=== PATIENT | female | born 1970 | race Caucasian/White ===

== ENCOUNTER 2017-08-12 00:32 | Emergency (ER) | payer OTHER ==
[2017-08-12] MEDS ORDERED: Acetaminophen 500 MG TAB ONE (02:12)
[2017-08-12 03:17] LABS: ALT (SGPT) Less than 7 U/L (8-55); AST (SGOT) 9 U/L (5-34); Alkaline Phosphatase 85 U/L (40-150); Anion Gap 12 mmol/L (10-20); BUN (Urea Nitrogen) 10 mg/dL (7.0-18.7); Bilirubin, Total 0.5 mg/dL (0.2-1.2); Calc. Creatinine Clearance 0 mL/min (70-130); Calcium 8.9 mg/dL (7.8-10.44); Carbon Dioxide 24 mmol/L (22-29); Chloride 105 mmol/L (98-107); Estimated GFR-MDRD 64; Globulin 3.1 g/dL (2.4-3.5); Lipase 19 U/L (8-78); Protein, Total 6.8 g/dL (6.0-8.3)
[2017-08-12 03:18] LABS: Hematocrit 37.1 % (36.0-47.0); Neutrophil 82 % (42-75); Red Blood Cell (RBC) Count 3.93 mill/uL (4.20-5.40); White Blood Cell (WBC) Count 14.8 thou/uL (4.8-10.8)
[2017-08-12 03:45] LABS: Bilirubin Small (Negative); Blood, Urine Trace (Negative); Glucose, Urine (Dipstick) Negative (Negative); Ketone, Urine Trace mg/dL (Negative); Nitrite Negative (Negative); Protein, Urine (Dipstick) 100 mg/dL (Neg-Trace)
[2017-08-12 03:47] LABS: Bacteria/HPF 1+ HPF (None Seen); RBC/HPF 0-3 HPF (0-3)
[2017-08-12 03:56] LABS: Hyaline Casts/LPF NONE SEEN LPF (0-3 Hyaline)
--- NOTE | 2017-08-12 07:03 | RAD ---
AP VIEW OF CHEST: Date: 08/12/17 INDICATION: Chest pain. Swelling within lymph glands of neck with soreness in the head and fever. IMPRESSION: The examination is not appreciably changed from the comparison dated 01/12/17. There is stable mild cardiomegaly. POS: [facility]
== END 2017-08-12 04:20 | disposition home or self-care (01) ==
LOC: ERS 00:32
DX: R59.0 Localized enlarged lymph nodes (principal); N39.0 Urinary tract infection, site not specified; I25.10 Atherosclerotic heart disease of native coronary artery without angina pectoris; I11.0 Hypertensive heart disease with heart failure; I50.9 Heart failure, unspecified; F31.9 Bipolar disorder, unspecified; F41.9 Anxiety disorder, unspecified; Z79.899 Other long term (current) drug therapy
CPT/HCPCS: 36415; 71010; 80053; 81003; 81015; 82553; 83690; 83880; 84484; 85025; 86308; 93005

== ENCOUNTER 2017-08-25 15:44 | Observation (INO) | payer OTHER ==
[2017-08-25 16:07] LABS: #Eosinphils 0.2 thou/uL (0.0-0.7); #Lymphocytes 1.9 thou/uL (1.20-3.40); #Monocytes 0.5 thou/uL (0.11-0.59); #Neutrophils 7.8 thou/uL (1.40-6.50); %Basophils 0.5 % (0.0-1.0); %Eosinophils 2.2 % (0.0-10.0); %Lymphocytes 18.2 % (21.0-51.0); %Monocytes 4.3 % (0.0-10.0); Hematocrit 39.1 % (36.0-47.0); Mean Platelet Volume 11.8 fL (7.4-10.4); Red Blood Cell (RBC) Count 4.13 mill/uL (4.20-5.40); White Blood Cell (WBC) Count 10.4 thou/uL (4.8-10.8)
[2017-08-25 16:25] LABS: ALT (SGPT) 8 U/L (8-55); AST (SGOT) 11 U/L (5-34); Alkaline Phosphatase 97 U/L (40-150); Anion Gap 10 mmol/L (10-20); BUN (Urea Nitrogen) 16 mg/dL (7.0-18.7); Bilirubin, Total 0.3 mg/dL (0.2-1.2); CK (CPK) 24 U/L (29-168); Calc. Creatinine Clearance 0 mL/min (70-130); Calcium 9.5 mg/dL (7.8-10.44); Carbon Dioxide 27 mmol/L (22-29); Chloride 105 mmol/L (98-107); Estimated GFR-MDRD 56; Globulin 3.7 g/dL (2.4-3.5); Protein, Total 7.8 g/dL (6.0-8.3)
[2017-08-25 16:32] LABS: Troponin I Less than 0.010 ng/mL (< 0.028)
--- NOTE | 2017-08-25 17:27 | RAD ---
PORTABLE CHEST 1 VIEW: Date: 08/25/17 Time: 1625 hours HISTORY: Chest pain. FINDINGS: Comparison made with exam of 08/12/17. The heart size is enlarged. The lungs are well expanded without focal areas of consolidation, pneumo thorax, adriana pulmonary edema, or pleural effusions. IMPRESSION: No acute process. POS: [facility]
[2017-08-25] MEDS ORDERED: Nitroglycerin 0.4 MG TAB (25 Tab Bottle) ONE (17:33)
[2017-08-25] MEDS ORDERED: Nitroglycerin 0.4 MG TAB (25 Tab Bottle) PO PRN (19:24)
[2017-08-25] MEDS ORDERED: Acetaminophen 325 MG TAB PO PRN (19:24)
[2017-08-25] MEDS ORDERED: Ondansetron ODT 4 MG TAB PO PRN (19:24)
[2017-08-25 19:34] LABS: Troponin I Less than 0.010 ng/mL (< 0.028)
[2017-08-25 20:13] VITALS: BMI 35.3
[2017-08-25 20:16] LABS: Amphetamine Not Detected (NotDetected); Methadone Not Detected (NotDetected); Methamphetamine Not Detected (NotDetected)
[2017-08-25 21:33] LABS: Magnesium 2.2 mg/dL (1.6-2.6); Phosphorus 3.7 mg/dL (2.3-4.7)
[2017-08-25 23:17] LABS: Troponin I Less than 0.010 ng/mL (< 0.028)
[2017-08-25] MEDS ORDERED: hydrOXYzine Pamoate 25 mg Capsule PO PRN (23:29)
[2017-08-25] MEDS ORDERED: Methocarbamol 500 MG TAB PO PRN (23:29)
[2017-08-26 05:15] LABS: #Basophils 0.1 thou/uL (0.0-0.2); #Eosinphils 0.2 thou/uL (0.0-0.7); #Lymphocytes 2.4 thou/uL (1.20-3.40); #Monocytes 0.4 thou/uL (0.11-0.59); #Neutrophils 4.9 thou/uL (1.40-6.50); %Basophils 0.7 % (0.0-1.0); %Eosinophils 2.1 % (0.0-10.0); %Lymphocytes 30.3 % (21.0-51.0); %Monocytes 5.4 % (0.0-10.0); Hematocrit 34.7 % (36.0-47.0); Mean Platelet Volume 12.1 fL (7.4-10.4); Red Blood Cell (RBC) Count 3.65 mill/uL (4.20-5.40); White Blood Cell (WBC) Count 7.9 thou/uL (4.8-10.8)
[2017-08-26] MEDS ORDERED: hydrALAZINE 20 MG/ML VIAL SLOW IVP PRN (05:49)
--- NOTE | 2017-08-26 05:57 | PDOC.FM ---
- Subjective Subjective: Patient feeling better this morning, no currently having any chest pain. States that she is hungry and asked for food. States that she did not follow up with Dr. Barth after last admission for chest pain, but she will after she is discharged this time. - Objective MAR Reviewed: Yes Vital Signs & Weight: Vital Signs (12 hours) Temp Pulse Resp BP Pulse Ox 08/26/17 04:00 98.7 F 76 18 184/83 H 97 08/25/17 23:13 99.1 F 83 18 139/71 98 08/25/17 19:43 98.9 F 71 18 08/25/17 19:40 99 08/25/17 19:15 98.9 F 71 18 169/86 H 97 Weight Weight 95.3 kg Result Diagrams: 08/26/17 04:03 08/26/17 04:03 EKG Reviewed by me: Yes Radiology Reviewed by me: Yes <Charles Batres - Last Filed: 08/26/17 08:55> - Objective Vital Signs & Weight: Vital Signs (12 hours) Temp Pulse Resp BP BP Pulse Ox 08/26/17 07:58 98.2 F 73 16 140/70 99 08/26/17 07:44 98 F 75 18 08/26/17 05:56 75 140/73 08/26/17 04:00 98.7 F 76 18 184/83 H 97 Weight Weight 210 lb 1.6 oz I&O: 08/25/17 08/26/17 08/27/17 06:59 06:59 06:59 Intake Total 600 Output Total 200 Balance 400 Result Diagrams: 08/26/17 04:03 08/26/17 04:03 <Vernon Marin - Last Filed: 08/26/17 11:34> Phys Exam - Physical Examination Constitutional: NAD HEENT: moist MMs, sclera anicteric Neck: no JVD, supple, full ROM Respiratory: no wheezing, no rales, no rhonchi, clear to auscultation bilateral Cardiovascular: RRR, no rub 3/6 systolic murmur Gastrointestinal: soft, non-tender, no distention, positive bowel sounds Musculoskeletal: no edema, pulses present Neurological: non-focal, moves all 4 limbs Psychiatric: normal affect, A&O x 3 <Charles Batres - Last Filed: 08/26/17 08:55> Dx/Plan (1) Chest pain Code(s): R07.9 - CHEST PAIN, UNSPECIFIED Status: Acute Plan: 2 day hx of chest pain, 3 day hx of cough, substernal, radiates to left arm, assd with dyspnea, lightheadedness, weakness -trops neg X3, EKG showed RBBB, LV hypertrophy with repolarization abnormality -neg CXR, normal TSH -used cocaine 4 days ago, UDS positive for cocaine -Nitro PRN, Hold Beta kalyani, ASA -possibly consult cardiology this morning (2) HTN (hypertension) Code(s): I10 - ESSENTIAL (PRIMARY) HYPERTENSION Status: Acute Plan: -Continue home medications Lisinopril, HOLD home beta kalyani -PRN Hydralazine for BPs greater than 180 (3) CHF (congestive heart failure) Code(s): I50.9 - HEART FAILURE, UNSPECIFIED Status: Chronic Plan: -2/2 hx of tetralogy of fallot -last echo was in January 2017, EF 40-45% -continue home lasix and ACEI (4) Thrombocytopenia Code(s): D69.6 - THROMBOCYTOPENIA, UNSPECIFIED Status: Acute Plan: PC of 99, continue to monitor closely with repeat central lines -check peripheral smear (5) Past history of tetralogy of Fallot, post surgical repair Code(s): Z98.890 - OTHER SPECIFIED POSTPROCEDURAL STATES; Z87.74 - PERSONAL HISTORY OF CONGENITAL MALFORM OF HEART AND CIRC SYS Status: Chronic Plan: stable (6) Anxiety Code(s): F41.9 - ANXIETY DISORDER, UNSPECIFIED Status: Chronic Plan: continue home medications - Plan Plan: Spoke with Dr. Lowe. Dr. Lowe will inform Dr. Barth of patient's case. Dr. Lowe stated patient can be discharged today with close follow up with Dr. Barth. <Charles Batres - Last Filed: 08/26/17 08:55> Attending Addendum - Attending Addendum I personally evaluated the patient and discussed the management with Dr. Batres I agree with the History, Examination, Assessment and Plan documented above with any addition or exceptions noted below. 46 year old with atypical chest pain that occurred after using crack cocaine. Her initial cardiac workup has been negative. She was in for a similar spell in March but did not followup as an outpatient with Dr. Barth. She has a surgically repaired tetrology of Fallot and a reduced EF 40-45%. She was on Lisinopril and Metoprolol. With the cocaine usage, we are stopping the beta kalyani and will go with Lisinopril/HCTZ for BP and CHF. We can discharge home with close followup in cardiology. <Vernon Marin - Last Filed: 08/26/17 11:34>
[2017-08-26 06:52] LABS: Anion Gap 9 mmol/L (10-20); BUN (Urea Nitrogen) 15 mg/dL (7.0-18.7); Calc. Creatinine Clearance 113 mL/min (70-130); Calcium 8.7 mg/dL (7.8-10.44); Carbon Dioxide 29 mmol/L (22-29); Chloride 104 mmol/L (98-107); Cholesterol 153 mg/dl (< 200 Desired); Estimated GFR-MDRD 63; LDL Cholesterol, Calculated 91 mg/dL
--- NOTE | 2017-08-26 07:15 | HP-2 ---
CODE STATUS: FULL. PRIMARY CARE PHYSICIAN: Bryon Kirkland M.D. ATTENDING: Raiza Edge M.D. CHIEF COMPLAINT: Chest pain. HISTORY OF PRESENT ILLNESS: This is a 46-year-old female who presents with a 2-day history of chest pain and 3-day history of cough. She had a sinus infection roughly one month ago and has not quit coughing since then. She states she used crack cocaine 4 days ago and the ingestion is only related to this pain. The pain began when she was just doing her normal activities, not in relation to exe rtion. She described the pain is in the middle of her chest and radiates to her left arm. She rate s it as a 5/10, it is associated with shortness of breath. She also describes lightheadedness and d izziness along with weakness. In the ER, she got nitro and an aspirin. PAST MEDICAL HISTORY: Significant for coronary artery disease, CHF, hypertension, tetralogy of Fall ot repair, anxiety and depression. PAST SURGICAL HISTORY: Amputation of the left lower extremity, cholecystectomy, back surgeries x3, tubal ligation and a tetralogy of Fallot repair. ALLERGIES: PHENOBARBITAL. MEDICATIONS: 1. Gabapentin 100 mg t.i.d. 2. Carvedilol 12.5 mg b.i.d. 3. Lisinopril 10 mg. 4. Phenergan 12.5 mg q.8 hours. 5. Venlafaxine 37.5 mg. 6. Lasix 20 mg. FAMILY HISTORY: Significant for cancer. SOCIAL HISTORY: She denies tobacco or alcohol use. She does admit to crack cocaine use. REVIEW OF SYSTEMS: General: She does admit chills and a 10 to 15-pound weight loss in the last thu. Eyes: She denies any vision changes or eye pain. ENT: Denies any nasal congestion, rhinorrhe a, or sore throat. Respiratory: She admits to a cough. Denies any congestion. Admits to shortnes s of breath. Cardiovascular: She admits to chest pain and palpitations. Denies any edema. Gastro intestinal: She denies nausea, vomiting or abdominal pain. She does admit to diarrhea. Genitourin henri: Denies any incontinence or dysuria. Skin: She denies any rashes, lesions, jaundice. Musculo skeletal: She denies any pain, tenderness, stiffness, swelling. She does have a left lower extremi ty amputation. Neurologic: She admits to weakness. Denies any numbness. She does admit to dizzin ess. Psychiatric: She admits to anxiety and depression problems. PHYSICAL EXAMINATION: VITAL SIGNS: Blood pressure is 153/82, pulse is 68, respirations 21, temperature max 98.1, pulse ox 97% on room air, current weight is 93 kilograms. GENERAL: She is alert and oriented x4. She is appropriately interactive. EYES: PERRLA. Conjunctivae within normal limits. ENT: She has closed ear canals that is significant. Nasal mucosa and oropharynx within normal limi ts. NECK: Supple, without lymphadenopathy, thyromegaly. CARDIOVASCULAR: She got regular rate and rhythm. She does have a 3/6 murmur that is present. Radi al and pedal pulses were equal bilaterally. The pain in her chest was reproducible with exam and sh e describes the pain as the same she was having. RESPIRATORY: Normal effort, no retractions. Clear lungs to auscultation bilaterally. SKIN: Warm and dry. ABDOMEN: Soft, nontender to palpation. Bowel sounds are present x4. No mass or distention. EXTREMITIES: No clubbing, cyanosis or edema. Her left lower extremity is amputated. MUSCULOSKELETAL: Structure, tone, muscle strength and range of motion within normal limits. NEUROLOGIC: No focal neurologic deficit. Sensation was within normal limits. Cranial nerves II-XI I grossly intact. GCS was 15. PSYCHIATRIC: Appropriate. LABORATORY DATA: White blood cell count 10.4, platelet count 127, hemoglobin 13.0, hematocrit 39.1, MCV 94.7, 74.8% neutrophils. Sodium was 138, potassium 4.2, chloride 105, bicarbonate 27, BUN 16, creatinine 1.07, glucose was 100, calcium is 9.5, total protein 7.8, albumin 4.1, total bilirubin 0. 3, AST was 11, ALT 8, alkaline phosphatase was 97. CK was 24, CK-MB 0.9, troponin I was less than 0 .01. Lipase was 49. BNP was 167.1. Her EKG showed an incomplete right bundle branch block, left v entricle hypertrophy with repolarization abnormalities. Chest x-ray showed nothing acute. ASSESSMENT AND PLAN: We have a 46-year-old female with past medical history significant for congest tc heart failure, hypertension, tetralogy of Fallot repair, anxiety, and depression, presents with: 1. Atypical chest pain. We will trend her troponins were going to get a UDS. We will likely get a Cardiology consult because of her extensive past cardiac surgery repair, get a TSH, and aspirin and nitro, admitted to telemetry. Get a CBC, BMP. Her heart score was 3. 2. Murmur. Her last echo earlier this year was consistent with surgery changes. 3. Congestive heart failure. Continue her home medications. 4. Hypertension. Continue her home medications. 5. Anxiety, depression. Continue her home medications. 6. Thrombocytopenia. We will track with a CBC. We will recommend outpatient follow up as her othe r labs had similar results to the findings of today. DISPOSITION AND LENGTH OF STAY: Observation and 1 day. Symptomatic medications will be provided. History and physical exam as well as management will be discussed with Dr. Edge.
[2017-08-26] MEDS ORDERED: Carvedilol 3.125 MG TAB PO SCH (09:00)
[2017-08-26] MEDS ORDERED: FLU VACC QS2017-18 36 mo. & older 0.5 ML SYRINGE IM ONE (09:00)
[2017-08-26] MEDS ORDERED: Enoxaparin Sodium 40 MG/0.4 ML SYRINGE SC SCH (09:00)
[2017-08-26] MEDS ORDERED: OXcarbazepine 150 MG TAB PO SCH (09:00)
[2017-08-26] MEDS ORDERED: Prevnar 13-Val Conj/PF 0.5 ML SYRINGE IM ONE (09:00)
[2017-08-26] MEDS ORDERED: Furosemide 20 MG TAB PO SCH (09:00)
[2017-08-26] MEDS ORDERED: Gabapentin 300 MG CAP PO SCH (09:00)
[2017-08-26] MEDS ORDERED: Famotidine 20 MG TAB PO SCH (09:00)
[2017-08-26] MEDS ORDERED: Lisinopril 5 MG TAB PO SCH (09:00)
[2017-08-26] MEDS ORDERED: Aspirin 325 MG TAB PO SCH (09:00)
[2017-08-26 11:53] VITALS: BP 126/63; TEMP 98.6
[2017-08-26 11:57] LABS: Hematocrit 37.6 % (36.0-47.0); Mean Platelet Volume 11.7 fL (7.4-10.4); Red Blood Cell (RBC) Count 3.95 mill/uL (4.20-5.40); White Blood Cell (WBC) Count 9.2 thou/uL (4.8-10.8)
[2017-08-26 12:48] LABS: Band 4 % (5-11); Neutrophil 71 % (42-75); Reactive Lymphocytes 3 % (0-10)
--- NOTE | 2017-08-26 16:22 | DIS-2 ---
DATE OF ADMISSION: 08/25/2017 DATE OF DISCHARGE: 08/26/2017 RESIDENT: Charles Batres MD ADMITTING ATTENDING: Raiza Edge M.D. DISCHARGE ATTENDING: Vernon Marin M.D. CONSULTATIONS: Spoke to Dr. Lowe, cheese processor on 08/26/2017. PROCEDURES: Chest x-ray. Impression: No acute cardiopulmonary process. PRIMARY DIAGNOSIS: Atypical chest pain. SECONDARY DIAGNOSES: 1. Past history of tetralogy of Fallot post-surgical repair. 2. Thrombocytopenia. 3. Congestive heart failure. 4. Hypertension. 5. Anxiety. DISCHARGE MEDICATIONS: Resume home medications. 1. Furosemide 20 mg p.o. daily. 2. Famotidine 20 mg p.o. b.i.d. 3. Methocarbamol 750 mg p.o. b.i.d. p.r.n. 4. Hydroxyzine 25 mg p.o. t.i.d. p.r.n. 5. Oxcarbazepine 150 mg p.o. b.i.d. 6. Gabapentin 300 mg p.o. t.i.d. NEW HOME MEDICATIONS: 1. Aspirin 81 mg p.o. daily. 2. Lisinopril/hydrochlorothiazide 10/12.5 mg 1 tablet p.o. daily. 3. Nitroglycerin 0.4 mg tab p.o. every 5 minute p.r.n. DISCONTINUED MEDICATIONS: 1. Carvedilol 3.125 mg p.o. b.i.d. 2. Lisinopril 5 mg p.o. daily. 3. Hydralazine 5 mg slow IV push every 15 minutes p.r.n. HISTORY OF PRESENT ILLNESS AND HOSPITAL COURSE: Mere Sanches is a 46-year-old female with past me dical history of tetralogy of Fallot, status post repair when she was a young child, congestive hear t failure. Last echo in 01/2017 showed ejection fraction of 40%-45%, hypertension, anxiety, and dep ression who presents with a 2-day history of chest pain, 3-day history of cough. She had a sinus in fection roughly one month ago and has not quit coughing since. She states that she used to crack co igor 4 days ago and the pain began when she was doing her normal activities and was not related to any exertion. She says that the pain is in the middle of her chest and radiates to her left arm. S he rates it as a 5/10. It is associated with shortness of breath, lightheadedness, and dizziness al lisa with weakness. In the ER, she received nitro and aspirin. On admission, blood pressure is 153/ 82, pulse 68, respiratory rate 21, pulse ox 97% on room air and T-max of 98.1. Physical exam was si gnificant for 3/6 systolic murmur. Radial and pedal pulses were equal. The murmur is chronic. Denisa st x-ray showed no acute cardiopulmonary processes. Cardiac enzymes were trended and all were negat tc. EKG showed incomplete right bundle branch block, left ventricular hypertrophy with repolarizat ion abnormalities. I spoke to Dr. Lowe with Cardiology and patient was actually seen by Dr. Barth in March and worked up. He chose not to do a stress test in the hospital and chose to have her follow u p closely outpatient with him. The patient did not do this because she says she does not have a car , but upon speaking with her this morning, she stated that she would follow up with Dr. Barth because she has a car now. Dr. Lowe did not feel that there is any intervention needed today and that she could follow up with Dr. Barth closely in the outpatient setting. The patient was in agreement with this plan. We stopped her beta kalyani due to the potential interactions of the beta kalyani with c ocaine and added her on a combination of lisinopril/HCTZ for better blood pressure control and also sent her with home nitro with the instruction to follow up with Dr. Barth as soon as possible. She h ad an echo done at the previous admission in 2017 that showed an ejection fraction of 40%-45% and ch anges that were consistent with stable chronic tetralogy of Fallot, status post repair. DISPOSITION: Guarded. DISCHARGE INSTRUCTIONS: 1. Location: Home. 2. Diet: Heart healthy. 3. Activity: As tolerated. 4. Follow up with Dr. Barth as soon as she can get an appointment, within 1 week. Follow up with ex tended physicians within 2 weeks.
== END 2017-08-26 12:43 | disposition home or self-care (01) ==
LOC: ERS 15:44 → 2SW 19:11
PROVIDERS: ADMIT Student in an Organized Health Care Education/Training Program; ATTEND Student in an Organized Health Care Education/Training Program
DX: R07.89 Other chest pain (principal); D69.6 Thrombocytopenia, unspecified; I11.0 Hypertensive heart disease with heart failure; I50.9 Heart failure, unspecified; F41.9 Anxiety disorder, unspecified; F32.9 Major depressive disorder, single episode, unspecified; I25.10 Atherosclerotic heart disease of native coronary artery without angina pectoris; Z79.82 Long term (current) use of aspirin; Z79.899 Other long term (current) drug therapy; Z88.8 Allergy status to other drugs, medicaments and biological substances; Z89.612 Acquired absence of left leg above knee; Z90.49 Acquired absence of other specified parts of digestive tract; Z98.51 Tubal ligation status; Z98.890 Other specified postprocedural states; Z87.798 Personal history of other (corrected) congenital malformations
CPT/HCPCS: 36415; 71010; 80048; 80053; 80061; 80306; 82553; 83690; 83735; 83880; 84100; 84443; 84484; 85025; 85060; 90471; 90670; 90682; 93005; 94760; G0008; G0009; G0378; Q2036

== ENCOUNTER 2017-11-21 05:42 | Emergency (ER) | payer OTHER ==
[2017-11-21 07:05] LABS: #Eosinphils 0.2 thou/uL (0.0-0.7); #Lymphocytes 2.1 thou/uL (1.20-3.40); #Monocytes 0.5 thou/uL (0.11-0.59); #Neutrophils 6.8 thou/uL (1.40-6.50); %Basophils 0.3 % (0.0-1.0); %Eosinophils 1.8 % (0.0-10.0); %Lymphocytes 21.6 % (21.0-51.0); %Monocytes 5.4 % (0.0-10.0); Hemoglobin 12.3 g/dL (12.0-16.0); Mean Corpuscular HGB CONC 33.2 g/dL (32.0-36.0); Mean Corpuscular Hemoglobin 30.9 pg (27.0-31.0); Mean Corpuscular Volume 93.1 fl (81.0-99.0); Mean Platelet Volume 11.8 fL (7.4-10.4); Platelet Count 126 thou/uL (130-400); RBC Distribution Width 12.6 % (11.5-14.5); Red Blood Cell (RBC) Count 3.97 mill/uL (4.20-5.40); White Blood Cell (WBC) Count 9.6 thou/uL (4.8-10.8)
[2017-11-21] MEDS ORDERED: Ondansetron HCl/PF 4 MG/2 ML Vial ONE (07:07)
[2017-11-21] MEDS ORDERED: Nitroglycerin 0.4 MG TAB (25 Tab Bottle) ONE (07:07)
[2017-11-21 07:26] LABS: ALT (SGPT) 7 U/L (8-55); AST (SGOT) 13 U/L (5-34); Albumin 4.1 g/dL (3.5-5.0); Alkaline Phosphatase 91 U/L (40-150); Anion Gap 16 mmol/L (10-20); BUN (Urea Nitrogen) 14 mg/dL (7.0-18.7); Bilirubin, Total 0.3 mg/dL (0.2-1.2); CK (CPK) 27 U/L (29-168); Calc. Creatinine Clearance 0 mL/min (70-130); Calcium 9.7 mg/dL (7.8-10.44); Carbon Dioxide 21 mmol/L (22-29); Chloride 105 mmol/L (98-107); Estimated GFR-MDRD 61; Globulin 3.7 g/dL (2.4-3.5); Glucose 99 mg/dL (70-105); Protein, Total 7.8 g/dL (6.0-8.3); Sodium 138 mmol/L (136-145)
[2017-11-21 07:30] LABS: CKMB 1.1 ng/mL (0-6.6); Troponin I Less than 0.010 ng/mL (< 0.028)
[2017-11-21 07:40] LABS: Bilirubin Negative (Negative); Blood, Urine Negative (Negative); Clarity CLEAR (Clear); Glucose, Urine (Dipstick) Negative (Negative); Leukocyte Negative (Negative); Nitrite Negative (Negative); Protein, Urine (Dipstick) Negative (Neg-Trace); Specific Gravity, Urine 1.009 (1.002-1.036); Urobilinogen 0.2 mg/dL (0.2-1.0); pH, Urine 6.5 (5.0-9.0)
--- NOTE | 2017-11-21 08:01 | RAD ---
UPRIGHT PORTABLE CHEST 1 VIEW: Date: 11/21/17 HISTORY: 47-year-old female with dyspnea and history of congestive heart failure with exacerbation, shortness of breath, swelling of legs, and chest tightness for several days. COMPARISON: 08/25/17. FINDINGS: Monitor leads overlie the chest. There is minimal cardiomegaly. There appears to be a right-sided aor tic arch and descending aorta. There is cardiomegaly. No confluent pneumonia, overt edema, or pleural effusion. IMPRESSION: Right-sided aortic arch and descending aorta. Cardiomegaly without overt edema or pleural effusion. N o evidence for pneumonia. POS: [facility]
--- NOTE | 2017-11-21 09:10 | ULT ---
RIGHT LOWER EXTREMITY VENOUS DUPLEX ULTRASOUND WITH COLOR AND SPECTRAL DOPPLER IMAGING: Date: 11/21/17 HISTORY: Right leg swelling and generalized edema for 3 weeks with pain in right foot. TECHNIQUE: Exam performed from groin to ankle including visualized greater saphenous, common femoral, superficia l femoral, profunda femoral, popliteal, trifurcation, and posterior tibial vein regions. FINDINGS: Phasic flow noted at all levels with normal compressibility and normal augmentation. No intraluminal thrombus. IMPRESSION: No evidence for right lower extremity deep venous thrombosis. POS: [facility]
== END 2017-11-21 09:15 | disposition home or self-care (01) ==
LOC: ERS 05:42
DX: R06.02 Shortness of breath (principal); I11.0 Hypertensive heart disease with heart failure; I50.9 Heart failure, unspecified; I25.10 Atherosclerotic heart disease of native coronary artery without angina pectoris; F41.9 Anxiety disorder, unspecified; F31.9 Bipolar disorder, unspecified; Z79.899 Other long term (current) drug therapy
CPT/HCPCS: 71045; 80053; 81003; 82553; 83880; 84484; 85025; 85379; 93005; 94760; 96374; J2405

== ENCOUNTER 2017-11-30 07:17 | Emergency (ER) | payer OTHER ==
[2017-11-30] MEDS ORDERED: Gabapentin 300 MG CAP PO SCH (08:00)
== END 2017-11-30 08:32 | disposition home or self-care (01) ==
LOC: ERS 07:17
DX: M54.5 Low back pain (principal); I25.10 Atherosclerotic heart disease of native coronary artery without angina pectoris; I50.9 Heart failure, unspecified; I11.0 Hypertensive heart disease with heart failure; F31.9 Bipolar disorder, unspecified; F41.9 Anxiety disorder, unspecified; Z79.899 Other long term (current) drug therapy
CPT/HCPCS: 99283

== ENCOUNTER 2017-12-08 13:47 | Observation (INO) | payer OTHER ==
[2017-12-08 14:31] LABS: Bilirubin Negative (Negative); Blood, Urine Negative (Negative); Clarity CLEAR (Clear); Glucose, Urine (Dipstick) Negative (Negative); Leukocyte Negative (Negative); Nitrite Negative (Negative); Protein, Urine (Dipstick) Trace mg/dL (Neg-Trace); Specific Gravity, Urine 1.025 (1.002-1.036); Urobilinogen 0.2 mg/dL (0.2-1.0)
[2017-12-08 14:36] LABS: #Basophils 0.1 thou/uL (0.0-0.2); #Eosinphils 0.2 thou/uL (0.0-0.7); #Lymphocytes 2.5 thou/uL (1.20-3.40); #Monocytes 0.5 thou/uL (0.11-0.59); #Neutrophils 5.6 thou/uL (1.40-6.50); %Basophils 0.9 % (0.0-1.0); %Eosinophils 1.9 % (0.0-10.0); %Monocytes 5.2 % (0.0-10.0); Hemoglobin 13.5 g/dL (12.0-16.0); Mean Corpuscular HGB CONC 32.7 g/dL (32.0-36.0); Mean Corpuscular Hemoglobin 30.7 pg (27.0-31.0); Mean Corpuscular Volume 93.8 fl (81.0-99.0); Mean Platelet Volume 12.1 fL (7.4-10.4); Platelet Count 129 thou/uL (130-400); Red Blood Cell (RBC) Count 4.39 mill/uL (4.20-5.40); White Blood Cell (WBC) Count 8.7 thou/uL (4.8-10.8)
[2017-12-08 14:37] LABS: Pregnancy Test - Urine (BHCG) Negative (Negative); Pregu Control Background? CLEAR/WHITE (CLR/WHITE); Pregu Control Bar Appear? YES (CONTROL BAR); Specific Gravity 1.025 (1.002-1.036)
[2017-12-08 14:43] LABS: Alcohol Less than 10 mg/dL (Less than 10); Anion Gap 10 mmol/L (10-20); BUN (Urea Nitrogen) 12 mg/dL (7.0-18.7); Calc. Creatinine Clearance 0 mL/min (70-130); Calcium 9.4 mg/dL (7.8-10.44); Carbon Dioxide 27 mmol/L (22-29); Chloride 105 mmol/L (98-107); Estimated GFR-MDRD 67; Glucose 102 mg/dL (70-105); Potassium 3.7 mmol/L (3.5-5.1); Sodium 138 mmol/L (136-145)
[2017-12-08 14:49] LABS: CKMB 0.9 ng/mL (0-6.6); Troponin I 0.022 ng/mL (< 0.028)
[2017-12-08 14:54] LABS: Large Platelets SLIGHT; MDiff Complete? YES; PLT Morphology Comment Appears Decreased; RBC Morphology Normal
--- NOTE | 2017-12-08 14:59 | RAD ---
FRONTAL RADIOGRAPH CHEST: Date: 12-08-17 Comparison: 11-21-17 History: Chest pain. FINDINGS: Superior mediastinum is not well assessed secondary to lordotic positioning and location of the patie nt's chin. No lobar consolidation or alveolar edema. IMPRESSION: No acute findings. POS: [facility]
[2017-12-08 15:17] LABS: ALT (SGPT) Less than 7 U/L (8-55); AST (SGOT) 11 U/L (5-34); Acetaminophen Less than 6.0 mcg/mL (10.0-30.0); Albumin 4.3 g/dL (3.5-5.0); Alkaline Phosphatase 88 U/L (40-150); Bilirubin, Total 0.5 mg/dL (0.2-1.2); CK (CPK) 24 U/L (29-168); Globulin 3.3 g/dL (2.4-3.5); Lipase 37 U/L (8-78); Protein, Total 7.6 g/dL (6.0-8.3); Salicylate Less than 8.0 mg/dL (15.0-30.0)
[2017-12-08 15:31] LABS: Prothrombin Time 13.3 SEC (12.0-14.7)
[2017-12-08 15:32] LABS: PTT 27.6 SEC (22.9-36.1)
[2017-12-08] MEDS ORDERED: Aspirin 81 mg Enteric Coated Tablet ONE (16:19)
[2017-12-08] MEDS ORDERED: Nitroglycerin 2% Ointment 1 INCH/1 GM Packet ONE (16:47)
--- NOTE | 2017-12-08 16:52 | PDOC.EVN ---
Attending Addendum - Attending Addendum I personally evaluated the patient and discussed the management with Dr. Call. I agree with the History, Examination, Assessment and Plan documented in his H& P with any addition or exceptions noted below. Patient with history of Tetrology of Fallot s/p repair as a child and resultant sCHF, HTN, and history of drug abuse presenting with chest pain that has been present over about the last 1 week, pressure type pain that occurs on exertion with radiation to left arm and associated with nausea, diaphoresis, and dizziness, and relieved by rest. She had similar episode in August 2017 and was supposed to follow up with Dr. Barth as outpatient for cardiac stress but never did so. She also endorses some suicidal thoughts today. Exam overall benign. Mildly hypertensive on exam, with systolic murmur noted, chronic. Her EKG shows no change from previous abnormal EKGs. Her troponins are negative first set. Mild thrombocytopenia. This patient will be obs to telemetry unit for what sounds like stable angina. Trend troponins, and will consult Cardiology due to patient's history and need for more specialist involvement in her care. Check UDS. NPO at midnight for possible stress testing. Sitter will be arranged for her suicidal thoughts and will consult [facility] once medically clear. Resume home medications to get HTN under control. She has been counselled on the importance of outpatient follow up with cardiology due to her congenital heart defect.
[2017-12-08 19:06] LABS: Troponin I 0.011 ng/mL (< 0.028)
[2017-12-08] MEDS ORDERED: Nitroglycerin 0.4 MG TAB (25 Tab Bottle) PO PRN (20:59)
[2017-12-08] MEDS ORDERED: Ondansetron HCl/PF 4 MG/2 ML Vial IVP PRN (20:59)
[2017-12-08] MEDS ORDERED: Acetaminophen 325 MG TAB PO PRN (20:59)
[2017-12-08] MEDS ORDERED: Ondansetron ODT 4 MG TAB PO PRN (20:59)
[2017-12-08 21:43] LABS: Troponin I 0.014 ng/mL (< 0.028)
[2017-12-08] MEDS ORDERED: Sodium Chloride 0.9% 10 ML ONE (21:55)
[2017-12-08 22:07] VITALS: BMI 32.7
--- NOTE | 2017-12-08 23:23 | HP-2 ---
CODE STATUS: FULL. PRIMARY CARE PHYSICIAN: Bryon Kirkland MD ATTENDING PHYSICIAN: Morales Allen MD RESIDENT: Felix Call MD HISTORIAN: Self. CHIEF COMPLAINT: Chest pain and suicidal ideation. HISTORY OF PRESENT ILLNESS: 47-year-old female here for chest pain starting 1 week ago. The pain oc curs 3 to 4 times per day every day. It is substernal, crushing, and radiates to the left arm. It i s associated with nausea, lightheadedness, shortness of breath. She has history of tetralogy of Fall ot, but is not currently being followed by a bulk gas specialist. The pain lasts approximately 2 to 3 minut es at a time. It is exacerbated with stress and exertion. The pain is relieved with rest. The patient also endorses suicidal ideation secondary to home stressors and living situation. She rhodes s a prior history of 2 suicide attempts with medication overdose and she has planned on doing this ag ain. She does not wish to talk further about the suicidal ideation and becomes tearful during conver sation. In the ER, the patient received aspirin 325 mg and Nitro-Bid transdermal 1 inch. PAST MEDICAL HISTORY: 1. Tetralogy of Fallot. 2. CHF. 3. Hypertension. 4. Anxiety and depression. 5. Crack cocaine abuse. PAST SURGICAL HISTORY: 1. Left BKA secondary to osteomyelitis. 2. Cholecystectomy. 3. Back surgery x3. 4. Bilateral tubal ligation. 5. Tetralogy of Fallot repair as an infant. ALLERGIES: PHENOBARBITAL. MEDICATIONS: 1. Venlafaxine 75 mg daily. 2. Lisinopril 10 mg daily. 3. Gabapentin 100 mg t.i.d. FAMILY HISTORY: Noncontributory. SOCIAL HISTORY: Denies tobacco, denies alcohol, but has a history of crack cocaine abuse. REVIEW OF SYSTEMS: General: Denies fever, chills. Denies weight loss, appetite changes. Eyes: De nies vision changes. Denies eye pain. Respiratory: Endorses dry cough. Denies congestion. Denie s shortness of breath. Cardiovascular: Endorses chest pain. Denies palpitations. Denies orthopnea . Gastrointestinal: Endorses nausea. Denies vomiting. Denies diarrhea. Denies constipation. Den ies abdominal pain. Denies GI bleeding. Genitourinary: Denies dysuria. Denies polyuria. Skin: D enies rashes. Denies lesions. Musculoskeletal: Denies musculoskeletal pain. Denies joint tenderne ss. Neurologic: Denies weakness. Denies numbness. Psychiatric: Endorses anxiety and depression. PHYSICAL EXAMINATION: VITAL SIGNS: Blood pressure 134/77, pulse of 83, respirations of 18, temperature max 98, pulse oxime ter 100% on room air, current weight 72 kg. GENERAL: Alert, oriented x3. She is obese. Appropriately interactive. NECK: Supple and no lymphadenopathy. CARDIOVASCULAR: She has regular rate and rhythm with 2/6 systolic murmur. Radial pulses symmetric. RESPIRATORY: Normal effort. No retractions. Clear to auscultation bilaterally. ABDOMEN: Soft. Tender to palpation. No masses or distention. EXTREMITIES: No clubbing or cyanosis. NEUROLOGIC: No focal deficits. Cranial nerves II through XII intact. SKIN: Warm and dry. No cyanosis. PSYCHIATRIC: She appears depressed and is crying during interview. LABORATORY DATA: White blood cell count 8.7, hemoglobin 13.5, hematocrit 41.2, platelets 129, MCV is 94, 64% neutrophils. Sodium 138, potassium 3.7, chloride 105, bicarb 27, BUN 12, creatinine 0.91, p latelets 102. CK is 24, CK-MB is 0.9. Troponin is 0.022. Lipase is 37. TSH is 1.5. AST is 11, AL T is 7, alkaline phosphatase 88. Calcium 9.4, total protein 7.6, albumin 4.3, and total bilirubin 0. 5. PT is 13, PTT is 27, INR is 1. UA shows a specific gravity of 1.02, negative for blood, negative for protein, negative for leukocyte esterase, negative for nitrite, negative for ketones, negative for glucose, negative for red blood c ells, negative for white blood cells, negative for bacteria. EKG shows chronic changes that are stable. Chest x-ray shows no acute findings. Echo done in January 2017 shows 40%-45% ejection fraction. ASSESSMENT AND PLAN: 47-year-old female here for chest pain with concerning cardiac history as well as suicidal ideation. 1. Atypical chest pain. We will consult Cardiology, make the patient n.p.o. at midnight for potenti al stress test tomorrow. We will check UDS. We will admit to tele/observation. We will trend her c ardiac enzymes and serial EKGs and continue aspirin and nitro p.r.n. 2. Tetralogy of Fallot. The patient does not see a bulk gas specialist. We will consult one on this admis gorge. She is status post repair as an infant. 3. Suicidal ideation. We will have a sitter and monitor her and consult MH tomorrow when medically stable. 4. Hypertension. We will continue lisinopril. DISPOSITION AND LENGTH OF HOSPITAL STAY: Observation. Symptomatic meds will be provided. History and physical exam as well as management were discussed with Dr. Morales Allen.
[2017-12-08] MEDS: Lorazepam 0.5 MG TAB PO PRN (23:58)
[2017-12-09 05:02] LABS: #Eosinphils 0.1 thou/uL (0.0-0.7); #Lymphocytes 2.3 thou/uL (1.20-3.40); #Monocytes 0.4 thou/uL (0.11-0.59); #Neutrophils 4.3 thou/uL (1.40-6.50); %Basophils 0.6 % (0.0-1.0); %Lymphocytes 32.3 % (21.0-51.0); %Monocytes 4.9 % (0.0-10.0); %Neutrophils 60.3 % (42.0-75.0); Hemoglobin 12.1 g/dL (12.0-16.0); Mean Corpuscular HGB CONC 32.5 g/dL (32.0-36.0); Mean Corpuscular Hemoglobin 30.9 pg (27.0-31.0); Mean Corpuscular Volume 95.1 fl (81.0-99.0); Mean Platelet Volume 12.1 fL (7.4-10.4); Platelet Count 110 thou/uL (130-400); Red Blood Cell (RBC) Count 3.93 mill/uL (4.20-5.40); White Blood Cell (WBC) Count 7.2 thou/uL (4.8-10.8)
[2017-12-09 05:09] LABS: Anion Gap 11 mmol/L (10-20); BUN (Urea Nitrogen) 14 mg/dL (7.0-18.7); Calc. Creatinine Clearance 106 mL/min (70-130); Calcium 8.7 mg/dL (7.8-10.44); Carbon Dioxide 25 mmol/L (22-29); Chloride 107 mmol/L (98-107); Estimated GFR-MDRD 63; Glucose 105 mg/dL (70-105); Potassium 3.5 mmol/L (3.5-5.1); Sodium 139 mmol/L (136-145)
[2017-12-09] MEDS: Lorazepam 0.5 MG TAB PO PRN ×3 (06:34→21:46)
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
[2017-12-09] MEDS ORDERED: hydrOXYzine Pamoate 25 mg Capsule PO PRN (09:09)
[2017-12-09 11:58] LABS: Cocaine Metabolite Screen Detected (NotDetected); Medtox Reader # READER 1; Methamphetamine Not Detected (NotDetected); Phencyclidine (PCP) Not Detected (NotDetected); THC/Cannabinoid Screen Not Detected (NotDetected)
[2017-12-09 11:59] LABS: Amphetamine Not Detected (NotDetected); Barbiturates Screen Not Detected (NotDetected); Benzodiazepine Screen Detected (NotDetected); Medtox Control Line Valid? VALID (VALID); Methadone Not Detected (NotDetected); Opiate Screen Not Detected (NotDetected); Oxycodone Screen Not Detected (NotDetected); Tricyclic Screen Not Detected (NotDetected)
--- NOTE | 2017-12-09 14:44 | NM ---
NUCLEAR MEDICINE CARDIAC PERFUSION EXAMINATION WITH EJECTION FRACTION: HISTORY: A 47-year-old female with chest pain. History of CHF and diabetes. TECHNIQUE: A stress-only nuclear medicine cardiac perfusion examination was performed. using 28 mCi of Techneti um 99m sestamibi and adenosine. FINDINGS: Tomographic images show no perfusion defects with stress. Gated images show global hypokinesis with an ejection fraction of 35%. EDV is 158 mL. LHR is 0.3. IMPRESSION: 1. No evidence of ischemia. 2. Hypokinesis and decreased ejection fraction is consistent with the patient's diagnosis of congest tc heart failure. POS: [facility]
[2017-12-09] MEDS: Gabapentin 300 MG CAP PO SCH ×3 (15:46→21:38)
[2017-12-09] MEDS: Aspirin 325 MG TAB PO SCH (15:47)
[2017-12-09] MEDS: Lisinopril/Hydrochlorothiazide 10 mg/12.5 mg Tablet PO SCH (15:47)
[2017-12-09] MEDS ORDERED: ADENOSINE 60 MG/20 ML VIAL ONE (16:29)
--- NOTE | 2017-12-09 21:26 | CON ---
DATE OF CONSULTATION: 12/09/2017 HISTORY: Mere Sanches is a 47-year-old white female who was evaluated by Dr. Barth in 01/2017. She has history of tetralogy of Fallot and at age of 16 months, underwent repair of this at [facility] in [facility]. When she was admitted, she was complaining of sharp chest pains. Echocardiogram at that time revealed an ejection fraction of 40%-45% with mild global hypokinesis, moderate right ventricular di latation, moderate pulmonic insufficiency, mild to moderate aortic insufficiency, mild mitral regurgi tation, and mild tricuspid regurgitation. It was felt that her pain was noncardiac in nature and was felt that no further diagnostic testing was required. She now presents with what sounds like same type of symptoms and with pressure or sharp pains on the left side of her chest radiating into her left shoulder. The pain will occur at rest, lasted approxi mately 5 minutes, and is definitely pleuritic in nature. She also has noticed palpable chest wall te nderness. She has also had 2 previous suicide attempts with medication overdose and has had ideation of doing this again and had planned on doing it. PAST MEDICAL HISTORY: Atypical chest discomfort, tetralogy of Fallot, hypertension, anxiety, depress ion, history of cocaine abuse. OPERATIONS: Left BKA secondary to osteomyelitis, cholecystectomy, back surgery x3, bilateral tubal l igation. MEDICATIONS: Aspirin 325 daily, famotidine 20 b.i.d., Lasix 20 daily, gabapentin 300 t.i.d., Vistari l 25 mg t.i.d. p.r.n., lisinopril/hydrochlorothiazide 10/12.5 q.a.m., Robaxin b.i.d. p.r.n., nitrogly cerin p.r.n., Trileptal 150 t.i.d. ALLERGIES: PHENOBARBITAL. SOCIAL HISTORY: She does not smoke or drink, but does use crack cocaine. REVIEW OF SYSTEMS: Negative except for depression. PHYSICAL EXAMINATION: VITAL SIGNS: Blood pressure 116/67, pulse of 81. HEENT: PERRL. NECK: Supple. CHEST: Clear. CARDIAC: S1 and S2 are normal without any S3 or S4. There is a 2/6 systolic murmur along the left l ower sternal border. ABDOMEN: Normal bowel sounds without tenderness or organomegaly. EXTREMITIES: Revealed no edema. NEUROLOGIC: Grossly intact. MUSCULOSKELETAL: Revealed palpable chest wall tenderness on the left side that reproduces her pain. LABORATORY DATA: EKG revealed normal sinus rhythm with incomplete right bundle branch block, diffuse ST and T-wave changes similar to previous EKGs. Hemoglobin 12.1, hematocrit 37.3, white count 7200, platelets 110,000. Sodium 139, potassium 3.5, chloride 107, carbon dioxide 25, BUN 14, creatinine 0 .96. Cardiac enzymes are negative x3. TSH is normal. IMPRESSION: 1. Chest wall pain. 2. Normal Cardiolite without evidence of ischemia or fixed defect. 3. Status post repair of tetralogy of Fallot. 4. History of suicidal attempts and suicidal ideation at this time. 5. Positive urine for cocaine. 6. Anxiety/depression. 7. Status post left [id number] amputation. RECOMMENDATIONS: Her chest pain is noncardiac in nature. I do not feel like further evaluation is w arranted. For overall cardiac health, however, it was very strongly recommended that she see a igor gary radiology transcriptionist. Followup long-term repair of tetralogy of Fallot is not an adult cardiology disea se and it should be followed by a pediatric genetic counselor. I have requested telephone numbers be obta ined for [facility] in [place] as well as at [facility] in [place]. Since her savanna n is not cardiac in nature, I will sign off.
[2017-12-09] MEDS: Famotidine 20 MG TAB PO SCH (21:38)
[2017-12-09] MEDS: OXcarbazepine 150 MG TAB PO SCH (21:41)
[2017-12-10 05:07] LABS: #Eosinphils 0.2 thou/uL (0.0-0.7); #Lymphocytes 2.2 thou/uL (1.20-3.40); #Monocytes 0.4 thou/uL (0.11-0.59); #Neutrophils 4.5 thou/uL (1.40-6.50); %Basophils 0.6 % (0.0-1.0); %Eosinophils 2.3 % (0.0-10.0); %Lymphocytes 30.5 % (21.0-51.0); %Monocytes 5.4 % (0.0-10.0); %Neutrophils 61.3 % (42.0-75.0); Hemoglobin 11.5 g/dL (12.0-16.0); Mean Corpuscular HGB CONC 31.8 g/dL (32.0-36.0); Mean Corpuscular Hemoglobin 30.3 pg (27.0-31.0); Mean Corpuscular Volume 95.2 fl (81.0-99.0); Mean Platelet Volume 12.2 fL (7.4-10.4); Platelet Count 112 thou/uL (130-400); Red Blood Cell (RBC) Count 3.79 mill/uL (4.20-5.40); White Blood Cell (WBC) Count 7.3 thou/uL (4.8-10.8)
[2017-12-10 05:33] LABS: Anion Gap 11 mmol/L (10-20); BUN (Urea Nitrogen) 16 mg/dL (7.0-18.7); Calc. Creatinine Clearance 121 mL/min (70-130); Calcium 8.5 mg/dL (7.8-10.44); Carbon Dioxide 26 mmol/L (22-29); Chloride 106 mmol/L (98-107); Estimated GFR-MDRD 73; Glucose 107 mg/dL (70-105); Potassium 3.7 mmol/L (3.5-5.1); Sodium 139 mmol/L (136-145)
[2017-12-10 07:56] VITALS: BP 125/64; TEMP 97.9
[2017-12-10] MEDS: OXcarbazepine 150 MG TAB PO SCH (07:58)
[2017-12-10] MEDS: Lisinopril/Hydrochlorothiazide 10 mg/12.5 mg Tablet PO SCH (07:58)
[2017-12-10] MEDS: Gabapentin 300 MG CAP PO SCH (07:58)
[2017-12-10] MEDS: Aspirin 325 MG TAB PO SCH (07:58)
[2017-12-10] MEDS: Famotidine 20 MG TAB PO SCH (07:58)
[2017-12-10] MEDS: Lorazepam 0.5 MG TAB PO PRN (07:59)
[2017-12-10] MEDS ORDERED: Furosemide 20 MG TAB PO SCH (09:00)
--- NOTE | 2017-12-11 11:52 | STRESS ---
Acquisition Time: 2017-12-09 13:02:54 Total Exercise Time: 00:04:00 Test Indications: CHEST PAIN Medications: Protocol: ADENOSINE Max HR: 100 BPM 57% of Pred: 175 BPM Max BP: 116/072 mmHG Max Work Load: 1.0 METS RESTING ECG: NORMAL SINUS RHYTHM AT 70 BPM WITH LEFT VENTRICULAR HYPERTROPHY REPOLARIZATION ABNORMALITY SYMPTOMS: CHEST PAIN, DYSPNEA ON EXERTION NORMAL BP RESPONSE ECTOPY STRESS: NONE ECG STRESS: NO SIGNIFICANT CHANGES INTERPRETATION: AWAIT NUCLEAR IMAGES FOR DEFINITIVE DIAGNOSIS Confirmed by GOLDEN YEBOAH ([id number]), magazine editor CYN CORBETT ([id number]) on 12/11/2017 11:51:06 AM Referred By: MD Brenda FARAH Confirmed By:GOLDEN YEBOAH
--- NOTE | 2017-12-12 12:07 | EKG ---
Test Reason : CHEST PAIN Blood Pressure : / mmHG Vent. Rate : 086 BPM Atrial Rate : 086 BPM P-R Int : 130 ms QRS Dur : 096 ms QT Int : 414 ms P-R-T Axes : 026 -07 163 degrees QTc Int : 495 ms Normal sinus rhythm Incomplete right bundle branch block Left ventricular hypertrophy with repolarization abnormality Prolonged QT Abnormal ECG No change Confirmed by FROYLAN KEATING, TJ ([id number]), newspaper editor managing FEDERICO LINCOLN ([id number]) on 12/12/2017 12:06:54 PM Referred By: Confirmed By:TJ GALEANO MD
--- NOTE | 2017-12-12 12:08 | EKG ---
Test Reason : Blood Pressure : / mmHG Vent. Rate : 084 BPM Atrial Rate : 084 BPM P-R Int : 136 ms QRS Dur : 098 ms QT Int : 416 ms P-R-T Axes : 005 -06 162 degrees QTc Int : 491 ms Normal sinus rhythm RSR' or QR pattern in V1 suggests right ventricular conduction delay Left ventricular hypertrophy with repolarization abnormality Prolonged QT Abnormal ECG No change Confirmed by FROYLAN KEATING, TJ ([id number]), fashion editor FEDERICO LINCOLN ([id number]) on 12/12/2017 12:07:49 PM Referred By: Confirmed By:TJ GALEANO MD
--- NOTE | 2017-12-23 05:02 | DIS-2 ---
DATE OF ADMISSION: 12/08/2017 DATE OF DISCHARGE: 12/10/2017 ADMITTING ATTENDING: Dr. Morales Allen. DISCHARGE ATTENDING: Dr. Morales Allen. RESIDENT: Dr. Erin Mueller. PROCEDURES: 1. Chest x-ray, no acute findings. 2. EKG showed normal sinus rhythm with incomplete right bundle-branch block and left ventricular hypertrophy with repolarization abnormality, prolonged QT was also noted. 3. Lexiscan Cardiolite for stress test. Resting EKG showed normal sinus rhythm at 70 beats per minute with left ventricular hypertrophy, repolarization abnormality. EKG during stress showed no significant changes. 4. Nuclear medicine cardiac perfusion examination with ejection fraction showed no evidence of ischemia. There was hypokinesis and decreased ejection fraction consistent with patient's diagnosis of congestive heart failure. CONSULTATIONS: Dr. Krueger from Cardiology. PRIMARY DIAGNOSES: 1. Stable angina. 2. Suicidal ideation. 3. Tetralogy of Fallot. 4. Depression. 5. Substance abuse. 6. Hypertension. 7. Anxiety. 8. Congestive heart failure with ejection fraction of 40-45%. DISCHARGE MEDICATIONS: 1. Gabapentin 300 mg oral 3 times daily. 2. Aspirin 325 mg oral daily. 3. Nitroglycerin 0.4 mg oral every 5 minutes as needed. 4. Famotidine 20 mg oral twice daily. 5. Furosemide 20 mg oral daily. 6. Hydroxyzine pamoate 25 mg oral 3 times daily as needed. 7. Robaxin 750 mg oral twice daily as needed. 8. Trileptal 150 mg oral twice daily. 9. Lisinopril/hydrochlorothiazide 10/12.5 one tablet oral every morning. HISTORY OF PRESENT ILLNESS AND HOSPITAL COURSE: This is a 47-year-old female who presents with chest pain starting 1 week ago. The pain occurred 3-4 times per day, every day. She described as substernal, crushing, and radiating to left arm. It was associated with nausea, lightheadedness, and shortness of breath. She also has a history of tetralogy of Fallot, but she is not currently being followed by a jigman. The patient states that the pain lasted approximately 2-3 minutes at a time and is exacerbated with stress and exertion. The pain is relieved with rest. The patient also endorses suicidal ideation secondary to home stressors and living situation. She has a prior history of two suicide attempts with medication overdose and has planned on doing this again. She did not wish to talk further about the suicidal ideation and became tearful during conversation. The patient remained stable throughout the course of her hospital stay due to the typical nature of her cardiac symptoms. Cardiology was consulted. Dr. Krueger did see the patient and did not think the chest pain was cardiac in nature as her Cardiolite stress test was negative for any signs of ischemia. It was strongly recommended that she see a ginner helper as pastry artist repair of tetralogy of Fallot is not an adult cardiology disease and should be followed by a ginner helper. Dr. Krueger did provide the patient with telephone numbers from [facility] in [place] as well as [facility] in [place]. Patient's UDS was positive for cocaine. It is likely that cocaine is contributing to her chest pain. The patient was encouraged to stop using drugs in an attempt to prevent further episodes of chest pain. The patient had suicidal ideations on admission. She claimed to want to overdose on pills as she has done previously Once medically stable [facility] was consulted. They determined the patient to be a good candidate for transfer to [facility]. A doc-to-doc was performed and patient was accepted to [facility] where she will receive treatment for her depression and suicidal ideation. DISPOSITION: Stable. DISCHARGE INSTRUCTIONS: 1. Location: [facility]. 2. Activity: Cardiopulmonary limitations. 3. Diet: Heart healthy. 4. Followup: The patient will remain in [facility] until deemed safe for discharge home, at which point she is encouraged to follow up with her primary care physician within 7 days of discharge from that facility. Additionally, the patient was encouraged to follow up with the ginner helper to follow her tetralogy of Fallot, status post repair. The patient was in understanding of the plan and agreeable. ANÍBAL
--- NOTE | 2018-02-08 21:32 | EKG ---
Test Reason : Blood Pressure : / mmHG Vent. Rate : 080 BPM Atrial Rate : 080 BPM P-R Int : 132 ms QRS Dur : 106 ms QT Int : 426 ms P-R-T Axes : -14 -10 158 degrees QTc Int : 491 ms Normal sinus rhythm Incomplete right bundle branch block Left ventricular hypertrophy with repolarization abnormality Prolonged QT Abnormal ECG When compared with ECG of 08-DEC-2017 15:06, (Unconfirmed) ST more depressed in Lateral leads T wave inversion more evident in Lateral leads Confirmed by JODI CANADA M.D. ([id number]) on 02/08/2018 9:32:10 PM Referred By: ENRIQUETA Confirmed By:JODI CANADA M.D.
== END 2017-12-10 08:54 ==
LOC: ERS 13:47 → ERHOLD 16:18 → 2NO 20:30
PROVIDERS: ADMIT Student in an Organized Health Care Education/Training Program; ATTEND Student in an Organized Health Care Education/Training Program
DX: R07.2 Precordial pain (principal); R45.851 Suicidal ideations; F41.9 Anxiety disorder, unspecified; F14.11 Cocaine abuse, in remission; I10 Essential (primary) hypertension; I25.10 Atherosclerotic heart disease of native coronary artery without angina pectoris; F31.9 Bipolar disorder, unspecified; Z91.5 Personal history of self-harm; Z87.74 Personal history of (corrected) congenital malformations of heart and circulatory system; Z79.899 Other long term (current) drug therapy; Z88.8 Allergy status to other drugs, medicaments and biological substances; Z97.4 Presence of external hearing-aid; Z90.49 Acquired absence of other specified parts of digestive tract; Z89.512 Acquired absence of left leg below knee; Z98.890 Other specified postprocedural states
CPT/HCPCS: 36415; 71045; 78452; 80048; 80306; 80307; 81003; 81025; 82553; 83690; 84443; 84484; 85025; 85610; 85730; 93005; 93010; 93017; 94760; A4216; A9500; G0378; J0153

== ENCOUNTER 2018-01-21 15:29 | Emergency (ER) | payer OTHER | END 2018-01-21 16:30 | disposition left against medical advice (07) | LOC: ERS 15:29 | DX: Z53.21 Procedure and treatment not carried out due to patient leaving prior to being seen by health care provider (principal) ==

== ENCOUNTER 2018-03-23 16:51 | Emergency (ER) | payer MEDICARE, OTHER ==
[~2018-03-23 16:51] MED LIST: ISOVUE-370 76%-LOCM 1 ML ONE
[2018-03-23 17:25] LABS: Hemoglobin 13.4 g/dL (12.0-16.0); Mean Corpuscular HGB CONC 32.7 g/dL (32.0-36.0); Mean Corpuscular Hemoglobin 30.6 pg (27.0-31.0); Mean Corpuscular Volume 93.7 fl (81.0-99.0); Mean Platelet Volume 12.1 fL (7.4-10.4); Platelet Count 129 thou/uL (130-400); Red Blood Cell (RBC) Count 4.39 mill/uL (4.20-5.40); White Blood Cell (WBC) Count 7.4 thou/uL (4.8-10.8)
[2018-03-23 17:41] LABS: ALT (SGPT) 8 U/L (8-55); AST (SGOT) 11 U/L (5-34); Albumin 4.4 g/dL (3.5-5.0); Alkaline Phosphatase 101 U/L (40-150); Anion Gap 10 mmol/L (10-20); BUN (Urea Nitrogen) 14 mg/dL (7.0-18.7); Bilirubin, Total 0.3 mg/dL (0.2-1.2); CK (CPK) 19 U/L (29-168); Calc. Creatinine Clearance 0 mL/min (70-130); Calcium 9.3 mg/dL (7.8-10.44); Carbon Dioxide 25 mmol/L (22-29); Chloride 104 mmol/L (98-107); Estimated GFR-MDRD 54; Globulin 3.3 g/dL (2.4-3.5); Glucose 128 mg/dL (70-105); Protein, Total 7.7 g/dL (6.0-8.3); Sodium 135 mmol/L (136-145)
[2018-03-23 17:43] LABS: #Eosinphils 0.2 thou/uL (0.0-0.7); #Lymphocytes 1.4 thou/uL (1.20-3.40); #Monocytes 0.4 thou/uL (0.11-0.59); #Neutrophils 5.4 thou/uL (1.40-6.50); %Basophils 0.6 % (0.0-1.0); %Eosinophils 2.5 % (0.0-10.0); %Monocytes 5.2 % (0.0-10.0); %Neutrophils 72.7 % (42.0-75.0); Large Platelets SLIGHT; MDiff Complete? YES; PLT Morphology Comment Appears Decreased
[2018-03-23 17:49] LABS: CKMB 0.9 ng/mL (0-6.6); Troponin I Less than 0.010 ng/mL (< 0.028)
[2018-03-23 18:02] LABS: BHCG - Serum Negative (NEGATIVE); Pregs Control Background? CLEAR/WHITE (CLR/WHITE); Pregs Control Bar Appear? YES (CONTROL BAR)
[2018-03-23] MEDS ORDERED: Nitroglycerin 0.4 MG TAB (25 Tab Bottle) ONE (18:02)
--- NOTE | 2018-03-23 18:29 | RAD ---
CHEST ONE VIEW 03/23/18 HISTORY: Chest pain. COMPARISON: Chest radiograph 12/08/17. FINDINGS: Heart size is mildly enlarged. Mildly prominent appearance of the right paratracheal soft tissues. No focal osseous abnormality. IMPRESSION: 1. Mild cardiomegaly. 2. Lobular appearance right paratracheal soft tissues with some leftward deviation of the trache a. A followup nonemergent CT scan of chest with contrast may be beneficial. POS: [facility]
--- NOTE | 2018-03-23 19:43 | CT ---
CT ANGIOGRAM CHEST CT ANGIOGRAM ABDOMEN 03/23/18 HISTORY: Aortic dissection protocol. Chest pain. COMPARISON: Radiograph same day. TECHNIQUE: CT angiogram of the chest and abdomen performed after the intravenous administration of contrast. 3D rendering is provided. There is a hypodense mass in the right lobe of the thyroid. There is a right s ided aorta with aberrant left subclavian artery. No aortic dissection. Heart size is enlarged. Pulmonary trunk is mildly distended as well as a left main pulmonary artery i s markedly dilated. Prior cholecystectomy. The liver and spleen are unremarkable. No intrahepatic or extrahepatic biliary dilatation. Normal right sided IVC. No dilated loops of large or small bowel in the upper abdomen. Extensive degenerative changes of the posterior elements of the lumbar spine incompletely evaluated. There is fusion of L4 and L5 vertebral bodies. Bilateral neural foraminal narrowing due to facet arth ropathy at L4 and L5. No displaced rib fracture. There is some mosaic attenuation of the lung parenchyma. No focal air spac e consolidation. IMPRESSION: 1. 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 The left subclavian artery is retroesophageal and sometimes can be a so urce of patient's chest pain. 2. Hypodensity of the thyroid, subcentimeter. Nonemergent followup ultrasound may be beneficial. 3. No acute abnormality within the upper abdomen. 4. Pulmonary arterial hypertension. POS: [facility]
[2018-03-23 20:50] LABS: Troponin I Less than 0.010 ng/mL (< 0.028)
--- NOTE | 2018-03-27 14:44 | EKG ---
Test Reason : CP Blood Pressure : / mmHG Vent. Rate : 082 BPM Atrial Rate : 082 BPM P-R Int : 128 ms QRS Dur : 096 ms QT Int : 410 ms P-R-T Axes : -12 -09 185 degrees QTc Int : 479 ms Normal sinus rhythm Incomplete right bundle branch block Left ventricular hypertrophy with repolarization abnormality Abnormal ECG Diffuse T wave inversions No ST elevation/MA Confirmed by RADHA MEYERS M.D. ([id number]), news assignment editor FEDERICO LINCOLN ([id number]) on 03/27/2018 2:44:25 PM Referred By: Confirmed By:RADHA MEYERS M.D.
== END 2018-03-23 21:00 | disposition home or self-care (01) ==
LOC: ERS 16:51
DX: R07.89 Other chest pain (principal); R93.5 Abnormal findings on diagnostic imaging of other abdominal regions, including retroperitoneum; F41.9 Anxiety disorder, unspecified; F31.9 Bipolar disorder, unspecified
CPT/HCPCS: 36415; 71045; 71275; 80053; 82550; 82553; 84484; 84703; 85025; 85379; 93005; 94760; 96360

== ENCOUNTER 2018-04-05 17:49 | Emergency (ER) | payer MEDICARE ==
[2018-04-05 18:24] LABS: #Lymphocytes 0.5 thou/uL (1.20-3.40); #Monocytes 0.3 thou/uL (0.11-0.59); #Neutrophils 6.6 thou/uL (1.40-6.50); %Basophils 0.2 % (0.0-1.0); %Eosinophils 0.5 % (0.0-10.0); %Lymphocytes 6.5 % (21.0-51.0); %Neutrophils 88.8 % (42.0-75.0); Hemoglobin 13.2 g/dL (12.0-16.0); Mean Corpuscular HGB CONC 33.6 g/dL (32.0-36.0); Mean Corpuscular Hemoglobin 30.8 pg (27.0-31.0); Mean Corpuscular Volume 91.8 fl (81.0-99.0); Mean Platelet Volume 11.3 fL (7.4-10.4); Platelet Count 95 thou/uL (130-400); Red Blood Cell (RBC) Count 4.29 mill/uL (4.20-5.40); White Blood Cell (WBC) Count 7.4 thou/uL (4.8-10.8)
[2018-04-05 18:44] LABS: ALT (SGPT) 8 U/L (8-55); AST (SGOT) 9 U/L (5-34); Albumin 4.3 g/dL (3.5-5.0); Alkaline Phosphatase 100 U/L (40-150); Anion Gap 10 mmol/L (10-20); BUN (Urea Nitrogen) 17 mg/dL (7.0-18.7); Bilirubin, Total 0.6 mg/dL (0.2-1.2); CK (CPK) 21 U/L (29-168); Calc. Creatinine Clearance 0 mL/min (70-130); Carbon Dioxide 23 mmol/L (22-29); Chloride 107 mmol/L (98-107); Estimated GFR-MDRD 52; Globulin 3.2 g/dL (2.4-3.5); Glucose 111 mg/dL (70-105); Potassium 3.8 mmol/L (3.5-5.1); Protein, Total 7.5 g/dL (6.0-8.3); Sodium 136 mmol/L (136-145)
[2018-04-05 18:48] LABS: CKMB 0.5 ng/mL (0-6.6); Troponin I Less than 0.010 ng/mL (< 0.028)
--- NOTE | 2018-04-05 19:28 | RAD ---
FRONTAL VIEW CHEST: INDICATIONS: Chest pain. FINDINGS: The cardiac silhouette is stable. There is no new consolidation or effusion. No discrete pneumothor ax. IMPRESSION: Stable chest. POS: [facility]
[2018-04-05 21:38] LABS: Troponin I Less than 0.010 ng/mL (< 0.028)
== END 2018-04-05 22:58 | disposition home or self-care (01) ==
LOC: ERS 17:49
DX: R07.9 Chest pain, unspecified (principal); I50.9 Heart failure, unspecified; F31.9 Bipolar disorder, unspecified; F41.9 Anxiety disorder, unspecified; Z79.899 Other long term (current) drug therapy; Z79.82 Long term (current) use of aspirin
CPT/HCPCS: 36415; 71045; 80053; 82550; 82553; 84484; 85025; 86850; 86900; 86901; 87804; 93005; 94760; 96360; 96361

== ENCOUNTER 2018-04-13 23:11 | Emergency (ER) | payer MEDICAID, MEDICARE, OTHER ==
--- NOTE | 2018-04-13 23:41 | RAD ---
ONE VIEW CHEST 04/13/18 COMPARISON: 04/05/18 HISTORY: CHF. One hour of shortness of breath. FINDINGS: Normal cardiac silhouette. The pulmonary vessels and hilum are normal. Costophrenic angles are clear. No consolidation or mass. No pneumothorax. No osseous abnormalities. IMPRESSION: No acute cardiopulmonary process. POS: [facility]
[2018-04-13 23:55] LABS: #Eosinphils 0.2 thou/uL (0.0-0.7); #Lymphocytes 1.6 thou/uL (1.20-3.40); #Monocytes 0.4 thou/uL (0.11-0.59); #Neutrophils 5.8 thou/uL (1.40-6.50); %Basophils 0.2 % (0.0-1.0); %Lymphocytes 19.6 % (21.0-51.0); %Monocytes 5.5 % (0.0-10.0); %Neutrophils 72.7 % (42.0-75.0); Hemoglobin 11.6 g/dL (12.0-16.0); Mean Corpuscular HGB CONC 33.2 g/dL (32.0-36.0); Mean Corpuscular Hemoglobin 30.5 pg (27.0-31.0); Mean Corpuscular Volume 91.8 fl (81.0-99.0); Platelet Count 108 thou/uL (130-400); RBC Distribution Width 12.9 % (11.5-14.5); Red Blood Cell (RBC) Count 3.81 mill/uL (4.20-5.40)
[2018-04-14 00:08] LABS: ALT (SGPT) 8 U/L (8-55); AST (SGOT) 9 U/L (5-34); Alkaline Phosphatase 103 U/L (40-150); Anion Gap 11 mmol/L (10-20); BUN (Urea Nitrogen) 13 mg/dL (7.0-18.7); Bilirubin, Total 0.2 mg/dL (0.2-1.2); CK (CPK) 20 U/L (29-168); Calc. Creatinine Clearance 0 mL/min (70-130); Calcium 9.1 mg/dL (7.8-10.44); Carbon Dioxide 26 mmol/L (22-29); Chloride 107 mmol/L (98-107); Estimated GFR-MDRD 52; Globulin 2.9 g/dL (2.4-3.5); Glucose 105 mg/dL (70-105); Lipase 60 U/L (8-78); Potassium 3.7 mmol/L (3.5-5.1); Protein, Total 6.9 g/dL (6.0-8.3); Sodium 140 mmol/L (136-145)
[2018-04-14 00:13] LABS: CKMB 0.4 ng/mL (0-6.6); Troponin I Less than 0.010 ng/mL (< 0.028)
[2018-04-14] MEDS ORDERED: Mag-Al 1200 mg/1200 mg/30 ML UDCUP ONE (01:09)
[2018-04-14] MEDS ORDERED: Lidocaine Viscous Sol 2% 15 ml UD Cup ONE (01:09)
--- NOTE | 2018-05-01 17:24 | EKG ---
Test Reason : SOB Blood Pressure : / mmHG Vent. Rate : 067 BPM Atrial Rate : 067 BPM P-R Int : 132 ms QRS Dur : 102 ms QT Int : 434 ms P-R-T Axes : 032 -02 174 degrees QTc Int : 458 ms Normal sinus rhythm Left ventricular hypertrophy with repolarization abnormality Inverted T wavesI, II, V2-V6 No STEMI Abnormal ECG Confirmed by MIRA Schneider, RADHA ([id number]), proposal editor NIRALI MARTINS ([id number]) on 05/01/2018 5:24:24 PM Referred By: Confirmed By:RADHA MEYERS M.D.
== END 2018-04-14 02:03 | disposition home or self-care (01) ==
LOC: ERS 23:11
DX: R06.02 Shortness of breath (principal); R10.13 Epigastric pain; I50.9 Heart failure, unspecified; I51.9 Heart disease, unspecified; F41.9 Anxiety disorder, unspecified; F31.9 Bipolar disorder, unspecified
CPT/HCPCS: 71045; 80053; 82550; 82553; 83690; 83880; 84484; 85025; 93005

== ENCOUNTER 2018-04-22 16:29 | Emergency (ER) | payer MEDICARE ==
[2018-04-22 17:13] LABS: #Basophils 0.1 thou/uL (0.0-0.2); #Eosinphils 0.1 thou/uL (0.0-0.7); #Lymphocytes 1.4 thou/uL (1.20-3.40); #Monocytes 0.5 thou/uL (0.11-0.59); #Neutrophils 6.2 thou/uL (1.40-6.50); %Basophils 0.6 % (0.0-1.0); %Eosinophils 1.7 % (0.0-10.0); %Lymphocytes 16.6 % (21.0-51.0); %Monocytes 5.5 % (0.0-10.0); %Neutrophils 75.6 % (42.0-75.0); Hemoglobin 12.2 g/dL (12.0-16.0); Mean Corpuscular Hemoglobin 30.8 pg (27.0-31.0); Mean Corpuscular Volume 90.4 fl (81.0-99.0); Mean Platelet Volume 11.8 fL (7.4-10.4); Platelet Count 95 thou/uL (130-400); RBC Distribution Width 12.6 % (11.5-14.5); Red Blood Cell (RBC) Count 3.96 mill/uL (4.20-5.40); White Blood Cell (WBC) Count 8.2 thou/uL (4.8-10.8)
[2018-04-22 17:22] LABS: ALT (SGPT) 8 U/L (8-55); AST (SGOT) 9 U/L (5-34); Alkaline Phosphatase 74 U/L (40-150); Anion Gap 11 mmol/L (10-20); BUN (Urea Nitrogen) 19 mg/dL (7.0-18.7); Bilirubin, Total 0.4 mg/dL (0.2-1.2); Calc. Creatinine Clearance 0 mL/min (70-130); Calcium 8.9 mg/dL (7.8-10.44); Carbon Dioxide 24 mmol/L (22-29); Chloride 104 mmol/L (98-107); Estimated GFR-MDRD 75; Globulin 2.9 g/dL (2.4-3.5); Glucose 85 mg/dL (70-105); Lipase 29 U/L (8-78); Protein, Total 6.9 g/dL (6.0-8.3); Sodium 135 mmol/L (136-145)
[2018-04-22 17:32] LABS: Bilirubin Negative (Negative); Blood, Urine Negative (Negative); Clarity CLEAR (Clear); Glucose, Urine (Dipstick) Negative (Negative); Leukocyte Negative (Negative); Nitrite Negative (Negative); Protein, Urine (Dipstick) Negative (Neg-Trace); Specific Gravity, Urine 1.019 (1.002-1.036); Urobilinogen 0.2 mg/dL (0.2-1.0); pH, Urine 5.5 (5.0-9.0)
[2018-04-22 17:36] LABS: Pregnancy Test - Urine (BHCG) Negative (Negative)
[2018-04-22 17:37] LABS: Pregu Control Background? CLEAR/WHITE (CLR/WHITE); Pregu Control Bar Appear? YES (CONTROL BAR); Specific Gravity 1.019 (1.002-1.036)
--- NOTE | 2018-04-22 19:08 | ULT ---
PELVIC ULTRASOUND: 04/22/18 INDICATIONS: 47-year-old female with right pelvic pain. Transabdominal and endovaginal ultrasound of pelvis performed. The uterus is mildly heterogeneous and mildly prominent. Uterine measurements corded at 9.4 x 4.0 x 6 .0 cm. Endometrial stripe appears within normal range measured at 4 to 6 mm. Both ovaries are identified. There is a right ovarian cyst measuring up to 2 cm and there is also a l eft ovarian cyst measuring up to 2 cm. Color doppler and spectral analysis demonstrates blood flow to both ovaries. No free fluid identified. IMPRESSION: Bilateral ovarian cysts. Pelvic ultrasound otherwise unremarkable. POS: [facility]
--- NOTE | 2018-04-22 19:56 | CT ---
CT ABDOMEN AND PELVIS WITH IV CONTRAST 04/22/18 Multiple axial tomograms obtained through the abdomen and pelvis with IV enhancement. Oral contrast w as not given. INDICATIONS: Right lower quadrant pain. Assess for appendicitis. Comparison made to recent CT 03/23/18. FINDINGS: The lung bases are clear. the liver, spleen, and pancreas are unremarkable. Patient is post cholecyst ectomy. Adrenal glands normal. Kidneys unremarkable. No hydronephrosis. Small bowel loops appear normal. The appendix is difficult to delineate due to lack of enteric opacification and low lying cecum which blends in with the right adnexa. The appendix appears to be normal caliber and there is no evidence of appendicitis identified. There is a right adnexal cyst measuring 2.3 cm and there is a left adnexal cyst measuring 2.2 cm. Bot h of these appear to be ovarian. Uterus is slightly deviated to the right. No free fluid. IMPRESSION: No evidence of acute abnormality. Appendix is difficult to delineate due to lack of enteric contrast and the positioning of the cecum; however, no evidence of appendicitis. There is evidence of small bi lateral ovarian cysts as described. POS: [facility]
== END 2018-04-22 19:06 | disposition home or self-care (01) ==
LOC: ERS 16:29
DX: N83.202 Unspecified ovarian cyst, left side (principal); N83.201 Unspecified ovarian cyst, right side; I50.9 Heart failure, unspecified; F41.9 Anxiety disorder, unspecified; F31.9 Bipolar disorder, unspecified; Z79.82 Long term (current) use of aspirin; Z79.899 Other long term (current) drug therapy
CPT/HCPCS: 36415; 74177; 76856; 80053; 81003; 81025; 83690; 85025; 94760

== ENCOUNTER 2018-05-05 16:03 | Inpatient (IN) | payer MEDICAID, MEDICARE ==
--- NOTE | 2018-05-05 16:18 | CT ---
NONCONTRAST CT HEAD: Date: 05-05-18 History: Stroke alert. Patient having left sided weakness. Last seen normal at 1545 hours. FINDINGS: Scattered areas of decreased attenuation are seen in the periventricular white matter which are nonsp ecific but likely reflective of chronic small vessel ischemic changes. There is no evidence of an acu te cortical infarction, hemorrhage, mass effect or midline shift. Ventricular system is normal in siz e, shape, and position. Visualized paranasal sinuses and mastoid air cells are clear. Calvarial struc tures are intact. IMPRESSION: 1. No acute intracranial abnormalities demonstrated. 2. Chronic small vessel ischemic changes. 3. Above findings discussed with Emergency Department Physician on 05-05-18 at 1610 hours. POS: [facility]
[2018-05-05 16:28] LABS: #Eosinphils 0.2 thou/uL (0.0-0.7); #Lymphocytes 1.3 thou/uL (1.20-3.40); #Monocytes 0.5 thou/uL (0.11-0.59); #Neutrophils 6.2 thou/uL (1.40-6.50); %Basophils 0.5 % (0.0-1.0); %Eosinophils 2.2 % (0.0-10.0); %Lymphocytes 15.6 % (21.0-51.0); %Monocytes 5.7 % (0.0-10.0); Hemoglobin 12.7 g/dL (12.0-16.0); Mean Corpuscular HGB CONC 32.8 g/dL (32.0-36.0); Mean Corpuscular Hemoglobin 30.4 pg (27.0-31.0); Mean Corpuscular Volume 92.6 fL (78.0-98.0); Mean Platelet Volume 12.5 fL (7.4-10.4); Platelet Count 110 thou/uL (130-400); RBC Distribution Width 13.4 % (11.5-14.5); Red Blood Cell (RBC) Count 4.19 mill/uL (4.20-5.40); White Blood Cell (WBC) Count 8.1 thou/uL (4.8-10.8)
[2018-05-05 16:34] LABS: Prothrombin Time 13.3 SEC (12.0-14.7)
[2018-05-05 16:35] LABS: BHCG - Serum Negative (NEGATIVE); PTT 27.1 SEC (22.9-36.1); Pregs Control Background? CLEAR/WHITE (CLR/WHITE); Pregs Control Bar Appear? YES (CONTROL BAR)
[2018-05-05 16:42] LABS: ALT (SGPT) 9 U/L (8-55); AST (SGOT) 11 U/L (5-34); Albumin 4.3 g/dL (3.5-5.0); Alkaline Phosphatase 94 U/L (40-150); Anion Gap 9 mmol/L (10-20); BUN (Urea Nitrogen) 15 mg/dL (7.0-18.7); Bilirubin, Total 0.3 mg/dL (0.2-1.2); Calc. Creatinine Clearance 0 mL/min (70-130); Calcium 9.8 mg/dL (7.8-10.44); Carbon Dioxide 28 mmol/L (22-29); Chloride 105 mmol/L (98-107); Estimated GFR-MDRD 59; Globulin 3.3 g/dL (2.4-3.5); Glucose 95 mg/dL (70-105); Potassium 4.2 mmol/L (3.5-5.1); Protein, Total 7.6 g/dL (6.0-8.3); Sodium 138 mmol/L (136-145)
[2018-05-05 16:46] LABS: CKMB 0.6 ng/mL (0-6.6); Troponin I Less than 0.010 ng/mL (< 0.028)
--- NOTE | 2018-05-05 16:53 | CT ---
CT ANGIOGRAM BRAIN WITH IV CONTRAST AND 3D RECONSTRUCTIONS CT ANGIOGRAM NECK WITH IV CONTRAST AND 3D RECONSTRUCTIONS 05/05/18 HISTORY: Stroke alert. Patient having left sided weakness and last seen normal at [address] ANGIOGRAM BRAIN: The distal right vertebral artery is dominant. Distal left vertebral artery is very small in caliber, but otherwise patent. The basilar artery as well as posterior cerebral arteries are patent bilateral ly. Posterior communicating arteries bilaterally appear patent although posterior communicating arter y on the left is smaller in size which is a normal variant. The left internal carotid artery is gener ally smaller in size compared to the left, but the distal bilateral internal carotid arteries are pat ent. Bilateral middle cerebral and anterior cerebral arteries are patent. There is a patent anterior communicating artery visualized. No aneurysm is seen within the limitations of the technique of this examination. IMPRESSION: 1. No focal stenosis or branch occlusion is seen involving the [place] or vertebrobasil ar system. 2. Distal right vertebral artery is dominant but patent. The distal left vertebral artery is liana y small in caliber. CT ANGIOGRAM NECK: There is a 1.1 cm hypodense nodule seen in the right lobe of the thyroid gland. This was seen on CTA of the chest on 03/23/18. There is a right sided aortic arch with an aberrant left subclavian artery. There is focal fusiform a neurysmal dilatation of the mid portion of the left subclavian artery. Proximal and distal portions o f the subclavian artery are normal in caliber and measures less than 1 cm in diameter. Focal aneurysm al dilatation measures 1.6 cm. The right subclavian artery is not visualized due to dense contrast in the right subclavian vein. The bilateral common carotid arteries are patent. The bilateral internal and external carotid arterie s are patent. The left internal carotid artery is generally smaller in caliber compared to the right, which is probably a normal variant and there is no focal significant stenosis. The right vertebral artery is dominant and patent. The left vertebral artery is generally very small in caliber but is also patent. IMPRESSION: 1. 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 There is fusiform aneurysmal dilatation involving the mid portion of the left subclavian artery. 2. Patent bilateral internal carotid arteries. 3. Patent bilateral vertebral arteries, but the left vertebral artery is generally very small in caliber with dominant right vertebral artery present. 4. Hypodense nodule right lobe of the thyroid gland, stable compared to CTA of the chest on 03/23. Ultrasound was recommended. Above findings discussed with Yolanda Hutchins NP in the Emergency Department on 05/05/18 at 1637 dileep rs. Code CR POS: ZULEMA
[2018-05-05 17:16] LABS: Bilirubin Negative (Negative); Blood, Urine Negative (Negative); Clarity CLEAR (Clear); Glucose, Urine (Dipstick) Negative (Negative); Leukocyte Negative (Negative); Nitrite Negative (Negative); Protein, Urine (Dipstick) Negative (Neg-Trace); Urobilinogen 0.2 mg/dL (0.2-1.0); pH, Urine 6.5 (5.0-9.0)
[2018-05-05 17:20] LABS: Specific Gravity, Urine 1.046 (1.002-1.036)
[2018-05-05] MEDS ORDERED: diphenhydrAMINE 50 MG/ML VIAL ONE (17:23)
[2018-05-05] MEDS ORDERED: Ketorolac Tromethamine 30 MG/ML VIAL ONE (17:23)
[2018-05-05] MEDS ORDERED: Metoclopramide HCl 10 MG/2 ML VIAL ONE (17:23)
[2018-05-05 17:28] LABS: Acetaminophen Less than 6.0 mcg/mL (10.0-30.0); Alcohol Less than 10 mg/dL (Less than 10); Salicylate Less than 8.0 mg/dL (15.0-30.0)
[2018-05-05 17:39] LABS: Amphetamine Not Detected (NotDetected); Barbiturates Screen Not Detected (NotDetected); Benzodiazepine Screen Not Detected (NotDetected); Cocaine Metabolite Screen Detected (NotDetected); Medtox Control Line Valid? VALID (VALID); Medtox Reader # READER 1; Methadone Not Detected (NotDetected); Methamphetamine Not Detected (NotDetected); Opiate Screen Not Detected (NotDetected); Oxycodone Screen Not Detected (NotDetected); Phencyclidine (PCP) Not Detected (NotDetected); THC/Cannabinoid Screen Not Detected (NotDetected); Tricyclic Screen Not Detected (NotDetected)
--- NOTE | 2018-05-05 19:39 | PDOC.FPRHP ---
- History of Present Illness Chief Complaint: slurred speech, L arm and face weakness/numbness, facial droop History of Present Illness: Patient is a 47yo F with PMH of tetralogy of fallot, cocaine abuse, HTN, and reported [place] 2 years prior presents with sudden onset at about 1pm of L arm weakness and numbness, slurred speech, and word-finding difficulty. Patient reports it started with a R unilateral, [id number] headache and some pain at the base of her skull and shortly after developed above sx. She also reports photophobia and nausea with the above sx. She does recall a similar event a couple days before fathers day this year that was about the exact same and lasted two days but the symptoms were much more mild. This time, sister-in- law to be was present and wasn't able to understand what the patient was saying with her slurred speech and word-finding aphasia. In the ED, patient with initial NIH score of 3 per documentation. Due to it's presentation with HARO, it was thought this could possibly be complex migraine, so a migraine cocktail was given with Benadryl, Reglan, and Toradol which seemed to improve sx to a degree. Dr. Mott, neurologist, was called and recommended to hold off on tPA due to the improving sx with migraine medication. Patient also reports increased stress in her life that she thinks is likely contributing to this. She recently had a friend pass and is having relationship problems, financial stress at home, and living situation difficulties. ED Course: In the ED she received ASA, 1L NS, benadryll, toradol, and reglan combo. [facility] was also called as discussed above. - Allergies/Adverse Reactions Allergies Allergy/AdvReac Type Severity Reaction Status Date / Time phenobarbital Allergy Rash Verified 12/08/17 22:16 - Home Medications Medication Instructions Recorded Confirmed Type Gabapentin 300 mg PO TID 08/25/17 12/08/17 History Aspirin 325 mg PO DAILY tab 08/26/17 12/08/17 Rx Nitroglycerin [Nitrostat] 0.4 mg PO Q5MIN PRN #60 tab 08/26/17 12/08/17 Rx Famotidine 20 mg PO BID 12/09/17 12/09/17 History Furosemide [Lasix] 20 mg PO DAILY 12/09/17 12/09/17 History Lisinopril/Hydrochlorothiazide 1 tablet PO QAM #30 tablet 12/09/17 Rx [Lisinopril-Hctz 10-12.5 mg Tab] Methocarbamol [Robaxin-750] 750 mg PO BID PRN 12/09/17 12/09/17 History OXcarbazepine [Trileptal] 150 mg PO BID 12/09/17 12/09/17 History hydrOXYzine Pamoate [Vistaril] 25 mg PO TID PRN 12/09/17 12/09/17 History - History PMHx: HTN Neuropathy tetralogy of fallot s/p repair ?CHF Bipolar disorder Depression Hepatitis C Hx of osteomyelitis s/p BKA Polysubstance abuse PSHx: L BKA back sx x4 cholecystectomy x1 ear sx TOF repair cleft palate repair FHx: sister-migraine HARO Mom- CVA maternal grandmother- [place] Social: Denies tobacco and etoh use. Reports cocaine and cannabis use on regular basis - Review of Systems General: denies: fever/chills, weight/appetite/sleep changes, night sweats Eyes: reports: vision changes. denies: eye pain ENT: denies: nasal congestion, rhinorrhea Respiratory: denies: cough, congestion, shortness of breath Cardiovascular: denies: chest pain, palpitation, edema Gastrointestinal: reports: nausea. denies: vomiting, diarrhea, constipation, abdominal pain Genitourinary: denies: incontinence, dysuria, polyuria Skin: denies: rashes, lesions, jaundice Musculoskeletal: denies: pain, tenderness, stiffness, swelling, arthritis/ arthralgias Neurological: reports: numbness, weakness. denies: syncope, seizure Psychological: reports: depression. denies: anxiety - Vital signs BP: 133/79 HR: 67 RR: 18 Tmax: 99.0 Pox: 96% on RA Wt: 86kg - Physical Exam Constitutional: NAD, awake, alert and oriented -Constitutional: speech is at its baseline although does have a lisp at baseline 2/2 cleft palate s/p repair. No trouble with word finding. HEENT: normocephalic and atraumatic, PERRLA, EOMI, grossly normal vision, grossly normal hearing, MMM, oropharynx clear -HEENT: poor dentition, no uvula Neck: supple, no LAD Chest: no-tender to palpation, no lesions Heart: RRR -Heart: 4/6 systolic murmur heard best at L sternal border Lungs: CTAB, no respiratory distress, no wheezing Abdomen: soft, non-tender, bowel sounds present Musculoskeletal: normal structure, normal tone, ROM grossly normal Neurological: CN II-XII intact, normal sensation -Neurological: DTR's 1/4 throughout, LUE and LLE strength 4/5, RUE and RLE strength 5/5, no dysdiadochokinesia, finger to nose exam slower on L but doable Skin: no rash/lesions Heme/Lymphatic: no unusual bruising or bleeding Psychiatric: normal mood and affect -Psychiatric: Denies SI at this time, no s/sx of suicidal behavior, no AVH apparent FMR H&P: Results - Labs Result Diagrams: 05/06/18 05:01 05/05/18 16:13 Lab results: WBC 8.1 thou/uL (4.8-10.8) 05/05/18 16:13 Hgb 12.7 g/dL (12.0-16.0) 05/05/18 16:13 Hct 38.8 % (36.0-47.0) 05/05/18 16:13 MCV 92.6 fL (78.0-98.0) 05/05/18 16:13 Plt Count 110 thou/uL (130-400) L 05/05/18 16:13 Neutrophils % 76.0 % (42.0-75.0) H 05/05/18 16:13 Sodium 138 mmol/L (136-145) 05/05/18 16:13 Potassium 4.2 mmol/L (3.5-5.1) 05/05/18 16:13 Chloride 105 mmol/L (98-107) 05/05/18 16:13 Carbon Dioxide 28 mmol/L (22-29) 05/05/18 16:13 BUN 15 mg/dL (7.0-18.7) 05/05/18 16:13 Creatinine 1.01 mg/dL (0.6-1.1) 05/05/18 16:13 Glucose 95 mg/dL (70-105) 05/05/18 16:13 Calcium 9.8 mg/dL (7.8-10.44) 05/05/18 16:13 Total Bilirubin 0.3 mg/dL (0.2-1.2) 05/05/18 16:13 AST 11 U/L (5-34) 05/05/18 16:13 ALT 9 U/L (8-55) 05/05/18 16:13 Alkaline Phosphatase 94 U/L (40-150) 05/05/18 16:13 Creatine Kinase 23 U/L (29-168) L 05/05/18 16:13 CK-MB (CK-2) 0.6 ng/mL (0-6.6) 05/05/18 16:13 B-Natriuretic Peptide 85.5 pg/mL (0-100) 05/05/18 16:01 Serum Total Protein 7.6 g/dL (6.0-8.3) 05/05/18 16:13 Albumin 4.3 g/dL (3.5-5.0) 05/05/18 16:13 Urine Ketones Negative mg/dL (Negative) 05/05/18 17:08 Urine Blood Negative (Negative) 05/05/18 17:08 Urine Nitrite Negative (Negative) 05/05/18 17:08 Ur Leukocyte Esterase Negative (Negative) 05/05/18 17:08 - Radiology Interpretation CT scan - head Status: image reviewed by me, report reviewed by me Additional comment: no acute deficit, evidence of chronic microvascular changes Other Status: image reviewed by me, report reviewed by me Additional comment: CTA head/neck: findings of congenital malformation of aorta and a fusiform aneurysmal dilatation in the mid portion of the L subclavian artery. No stenosis noted FMR H&P: A/P - Problem List (1) CVA (cerebral vascular accident) Current Visit: Yes Status: Suspected Code(s): I63.9 - CEREBRAL INFARCTION, UNSPECIFIED (2) Migraine Current Visit: Yes Status: Suspected Code(s): G43.909 - MIGRAINE, UNSP, NOT INTRACTABLE, WITHOUT STATUS MIGRAINOSUS (3) Abnormal computed tomography angiography (CTA) Current Visit: Yes Status: Acute Code(s): R93.8 - ABNORMAL FINDINGS ON DIAGNOSTIC IMAGING OF BODY STRUCTURES (4) Bipolar 1 disorder Current Visit: Yes Status: Chronic Code(s): F31.9 - BIPOLAR DISORDER, UNSPECIFIED (5) Neuropathy Current Visit: Yes Status: Chronic Code(s): G62.9 - POLYNEUROPATHY, UNSPECIFIED (6) Hepatitis C Current Visit: Yes Status: Chronic Code(s): B19.20 - UNSPECIFIED VIRAL HEPATITIS C WITHOUT HEPATIC COMA (7) Thrombocytopenia Current Visit: No Status: Acute Code(s): D69.6 - THROMBOCYTOPENIA, UNSPECIFIED (8) Anxiety Current Visit: No Status: Chronic Code(s): F41.9 - ANXIETY DISORDER, UNSPECIFIED (9) CHF (congestive heart failure) Current Visit: No Status: Chronic Code(s): I50.9 - HEART FAILURE, UNSPECIFIED (10) Depression Current Visit: No Status: Chronic Code(s): F32.9 - MAJOR DEPRESSIVE DISORDER , SINGLE EPISODE, UNSPECIFIED (11) HTN (hypertension) Current Visit: No Status: Chronic Code(s): I10 - ESSENTIAL (PRIMARY) HYPERTENSION (12) Past history of tetralogy of Fallot, post surgical repair Current Visit: No Status: Chronic Code(s): Z98.890 - OTHER SPECIFIED POSTPROCEDURAL STATES; Z87.74 - PERSONAL HISTORY OF CONGENITAL MALFORM OF HEART AND CIRC SYS (13) Substance abuse Current Visit: No Status: Chronic Code(s): F19.10 - OTHER PSYCHOACTIVE SUBSTANCE ABUSE, UNCOMPLICATED - Plan CVA/TIA vs complex migraine - Patient with hx of sx lasting 2 days on prior occasion and today improving with migraine medication. Risk factors for CVA/TIA include HTN and congenital heart malformation. Also to be considered, patient has multiple stressors in her life and a degree of presentation could be somatic manifestation. Motor deficits still there but speech deficits resolved. - MRI pending - echo pending - NPO pending bedside swallow - NIH scales - Neuro consulted in ED, to follow, appreciate recs - allow for permissive HTN for 24h - continue Reglan, Toradol, and Benadryl combo for HARO sx - add ASA and statin - FLP, A1c to risk stratify Aneurysmal dilatation of L subclavian on CTA - plan to discuss with specialist about observation or need for intervention - no s/sx of subclavian steal Thrombocytopenia - 110, repeat tomorrow - consider changing off toradol and ASA combined if lowers or does not improve - could be acute phase reactant HTN - allow for permissive HTN - med rec, clinic record not in agreement with what patient reports, and doses and complete list of meds are not known by patient. Neuropathy - med rec - plan to continue home gabapentin CHF - Last EF her is 45% in 2017, but patient reports EF 35%. - will request records from [facility] and have echo pending - will need to be on BB if echo and/or records confirm HFrEF Polysubstance Abuse - counseled on cessation - CM for resources for rehab and NA Incomplete RBBB - stable from prior EKG Hepatitis C - normal LFT's at this time Bipolar - continue home meds once med rec is complete Depression - made mention of SI in ED, although denied at time of my evaluation - continue to monitor - home meds once med rec is complete VTE ppx: Lovenox Code status: Full Dispo: Likely <48h pending MRI, echo, neuro recs and need for PT/OT FMR H&P: Upper Level - Plan Date/Time: 05/05/181937 Pt is a 47 yo unfortunate F w/ PMH of bipolar disorder, Hep C, CHF, tetrology of falot repaired as a child, crack cocaine abuse B BKA for osteo who presented to the ED acutely with stroke like symptoms. They contemplated giving her tPA but contacted Dr. Mott and he said to hold off as her symptoms were improving with migraine cocktail. Pt reports "TIA" 2 days after fathers day and that they symptoms resolved in 2 days. Symptoms were similar today R sided frontal headache, L arm weakness, base of skull pain. She also had slurring of her words today. She reports using crack cocaine last 4-5 days ago. UDS positive today. At time of our exam, pt states headaches was resolved but starting to return currently 1/10, L arm weakness much better 4/5 strength in UE and speech back at baseline. General: AOx3, appears in no acute distress, HEENT: moist mucus membranes, no pharyngeal edema, cleft palate repair, dentures , no uvula Cardiac: 3/6 systolic murmur gallops, clicks or rubs Lungs: CTA, no wheezes, rales, rubs, rhonchi Abdomen: soft, non TTP, normoactive bs, no abdominal mass or pulsation Extremities: No TTP, no swelling, cyanosis, no pitting edema, L BKA Neuro: CN II-XII intact, 4/5 senior mobile web developer LUE and 4/5 LUE and 5/5 LE strength other than chronic weakness in LLE from BKA, no decrease in sensation A/P: 1. Complex migraine vs. CVA- admit, stroke, still has some persistent symptoms on the LUE, MRI brain tomorrow, echo. CT and CTA completed, L aneurysmal dilitation of the subclavian on CTA. Asa and statin. Risk stratify with lab work. Dr. Mott consulted in ED. Consult stroke team. Pt also endorses a lot of home stress, could be related to somatic manifestation as well as could be an atypical migraine, pt declines hx of migraine. 2. Cocaine abuse-discussed cessation, consult CM for resources 3. Hx of repaired TOF-r/o embolic stroke with echo 4. Bipolar disorder-home meds I, Lauren Johnson, have evaluated this patient and agree with findings/plan as outlined by internet consultant resident, Dr. Ferrara. Pertinent changes/additions are listed here. Attending Addendum - Attending Addendum Date/Time: 05/06/18 8817 I personally evaluated the patient and discussed the management with Dr. Ferrara. I agree with and repeated the History, Examination, Assessment and Plan documented above with any addition or exceptions noted below. Please note patient seen on 05/05. LUE 4+/5, assymetric facies but no obvious CN deficits on exam. She sounds slightly dysarthric but this is apparently her baseline. Will r/o CVA. Atypical migraine unusual to start at this age. Discussed complications for cocaine abuse. ASA, statin, and consideration of CCB in light of drug abuse.
[2018-05-05] MEDS ORDERED: Ondansetron ODT 4 MG TAB SL PRN (19:47)
[2018-05-05] MEDS ORDERED: Ondansetron HCl/PF 4 MG/2 ML Vial IVP PRN (19:47)
--- NOTE | 2018-05-05 20:06 | RAD ---
FRONTAL RADIOGRAPH CHEST: 05/05/18 COMPARISON: 04/13/18 HISTORY: Left sided weakness and slurred speech, altered mental status. FINDINGS: Heart and mediastinal contours are stable. The lungs appear clear. IMPRESSION: Stable frontal chest radiograph - no acute findings. POS: ALBINA
[2018-05-05] MEDS ORDERED: Acetaminophen 325 MG TAB PO PRN (20:20)
[2018-05-05] MEDS ORDERED: Ondansetron ODT 4 MG TAB PO PRN (20:20)
[2018-05-05] MEDS ORDERED: Docusate 100 MG CAP PO PRN (20:20)
[2018-05-05] MEDS ORDERED: diphenhydrAMINE 25 MG CAP PO PRN (20:34)
[2018-05-05] MEDS ORDERED: Metoclopramide HCl 10 MG TAB PO PRN (20:34)
[2018-05-05] MEDS ORDERED: Ketorolac Tromethamine 30 MG/ML VIAL IVP PRN (20:34)
[2018-05-05] MEDS ORDERED: hydrALAZINE 20 MG/ML VIAL SLOW IVP PRN (20:41)
[2018-05-05] MEDS ORDERED: Atorvastatin Calcium 40 MG TAB PO SCH (21:00)
[2018-05-05 21:42] VITALS: BMI 32.6
[2018-05-05] MEDS: Sodium Chloride 0.9% 1,000 ML IV SCH (21:59)
[2018-05-06 05:32] LABS: #Eosinphils 0.1 thou/uL (0.0-0.7); #Lymphocytes 1.5 thou/uL (1.20-3.40); #Monocytes 0.4 thou/uL (0.11-0.59); #Neutrophils 3.9 thou/uL (1.40-6.50); %Basophils 0.1 % (0.0-1.0); %Eosinophils 2.4 % (0.0-10.0); %Monocytes 6.9 % (0.0-10.0); %Neutrophils 65.6 % (42.0-75.0); Hemoglobin 10.9 g/dL (12.0-16.0); Mean Corpuscular HGB CONC 32.7 g/dL (32.0-36.0); Mean Corpuscular Hemoglobin 30.2 pg (27.0-31.0); Mean Corpuscular Volume 92.3 fL (78.0-98.0); Mean Platelet Volume 11.9 fL (7.4-10.4); Platelet Count 84 thou/uL (130-400); RBC Distribution Width 13.1 % (11.5-14.5)
[2018-05-06 05:35] LABS: Hemoglobin A1c 4.7 % (4.0-6.0)
[2018-05-06] MEDS: Sodium Chloride 0.9% 1,000 ML IV SCH (05:39)
[2018-05-06 05:41] LABS: Cardiac Risk 2.9 (Less than 4.5)
--- NOTE | 2018-05-06 08:21 | PDOC.FM ---
- Subjective Subjective: 47 yo F w/hx of TOF s/p repair, cocaine abuse, CHF, and Hep C here for concern of possible CVA/TIA. Pt states that as of this morning all symptoms have resolved. She denies continued headaches or left sided weakness. She denies any new symptoms over night. There were no acute events over night. - Objective Vital Signs & Weight: Vital Signs (12 hours) Temp Pulse Resp BP Pulse Ox 05/06/18 07:48 98.0 F 61 16 165/74 H 97 05/06/18 04:03 98.2 F 71 20 120/64 98 05/05/18 23:26 97.9 F 71 20 133/72 97 Weight Weight 89.086 kg I&O: 05/05/18 05/06/18 05/07/18 06:59 06:59 06:59 Intake Total 1164 Balance 1164 Result Diagrams: 05/06/18 05:01 05/05/18 16:13 EKG Reviewed by me: Yes (NSR on Tele) Radiology Reviewed by me: Yes <Dave Godoy - Last Filed: 05/06/18 08:15> - Objective Vital Signs & Weight: Vital Signs (12 hours) Temp Pulse Pulse Pulse Resp BP BP 05/06/18 08:00 98.0 F 61 16 05/06/18 07:48 98.0 F 61 16 05/06/18 07:42 56 L 57 L 165/74 H 173/72 H 05/06/18 04:03 98.2 F 71 20 BP Pulse Ox 05/06/18 08:00 05/06/18 07:48 165/74 H 97 05/06/18 07:42 05/06/18 04:03 120/64 98 Weight Weight 89.086 kg I&O: 05/05/18 05/06/18 05/07/18 06:59 06:59 06:59 Intake Total 1164 Balance 1164 Result Diagrams: 05/06/18 05:01 05/05/18 16:13 <Viktor Ortiz - Last Filed: 05/06/18 11:49> Phys Exam - Physical Examination Constitutional: NAD HEENT: moist MMs, sclera anicteric Neck: no JVD, full ROM Respiratory: clear to auscultation bilateral Cardiovascular: RRR 4/6 systolic murmur loudest at L sternal border Gastrointestinal: soft, non-tender, no distention, positive bowel sounds Musculoskeletal: no edema Neurological: non-focal, normal sensation, moves all 4 limbs Normal strength in upper and lower extremities Psychiatric: normal affect, A&O x 3 <Dave Godoy - Last Filed: 05/06/18 08:15> Dx/Plan (1) TIA (transient ischemic attack) Status: Suspected (2) Bipolar 1 disorder Code(s): F31.9 - BIPOLAR DISORDER, UNSPECIFIED Status: Chronic (3) Hepatitis C Code(s): B19.20 - UNSPECIFIED VIRAL HEPATITIS C WITHOUT HEPATIC COMA Status: Chronic (4) Thrombocytopenia Code(s): D69.6 - THROMBOCYTOPENIA, UNSPECIFIED Status: Acute (5) Anxiety Code(s): F41.9 - ANXIETY DISORDER, UNSPECIFIED Status: Chronic (6) CHF (congestive heart failure) Code(s): I50.9 - HEART FAILURE, UNSPECIFIED Status: Chronic (7) Depression Code(s): F32.9 - MAJOR DEPRESSIVE DISORDER, SINGLE EPISODE, UNSPECIFIED Status : Chronic (8) HTN (hypertension) Code(s): I10 - ESSENTIAL (PRIMARY) HYPERTENSION Status: Chronic (9) Past history of tetralogy of Fallot, post surgical repair Code(s): Z98.890 - OTHER SPECIFIED POSTPROCEDURAL STATES; Z87.74 - PERSONAL HISTORY OF CONGENITAL MALFORM OF HEART AND CIRC SYS Status: Chronic (10) Substance abuse Code(s): F19.10 - OTHER PSYCHOACTIVE SUBSTANCE ABUSE, UNCOMPLICATED Status: Chronic - Plan Plan: TIA vs complex migraine - All symptoms now resolved. It seems very likely that this was related to a complex migraine and psychosomatic symptoms. However she does have multiple risk factors for TIA/CVA. - MRI pending - echo pending - Bedside swallow passed - Neuro consulted in ED, to follow, appreciate recs - Reglan, Toradol, and Benadryl for headache PRN - Continue aspirin and statin - FLP and A1c WNL Aneurysmal dilatation of L subclavian on CTA - incidental finding, plan to discuss with specialist about observation or need for intervention - no s/sx of subclavian steal Thrombocytopenia - Pt chronically low, however 84 this am is lowest recorded. - continue to trend, unclear as to cause. Given mild anemia and low normal WBC count will order HIV screen HTN - Most recorded BP WNL. Will restart meds when we are able to accurately determine home meds - med rec, clinic record not in agreement with what patient reports, and doses and complete list of meds are not known by patient. Neuropathy - plan to continue home gabapentin CHF - Last EF her is 45% in 2017, but patient reports EF 35%. Echo pending today - will need to be on BB if echo and/or records confirm HFrEF Polysubstance Abuse - counseled on cessation - CM for resources for rehab and NA Incomplete RBBB - stable from prior EKG Hepatitis C - normal LFT's at this time Bipolar - continue home meds once med rec is complete Depression - continue to monitor - home meds once med rec is complete - No current SI Dispo: Pt is currently stable, continue to work to r/o CVA/TIA. Length of stay < 48 hours pending imaging and Neuro recommendation <Dave Godoy - Last Filed: 05/06/18 08:15> Attending Addendum - Attending Addendum Date/Time: 05/06/18 5428 I personally evaluated the patient and discussed the management with Dr. Godoy I agree with the History, Examination, Assessment and Plan documented above with any addition or exceptions noted below.Patient with pre-event baseline neuro exam this am. Patient for follow up MRI later today. Patient with history thrombocytopenia (history of treated hep C) below usual baseline will work up initial screening labs. Incidental finding of subclavian fusiform dilation will ask for opinion CV surgery appreciate recs. Otherwise will need repeat colonoscopy based on additional history offered today regard history pre- malignant polyp in the past. Encourage cessation polysubstance abuse. Echocardiogram pending. <Viktor Ortiz - Last Filed: 05/06/18 11:49>
[2018-05-06] MEDS ORDERED: Lorazepam 2 MG/ML VIAL SLOW IVP SCH (08:30)
[2018-05-06] MEDS ORDERED: Enoxaparin Sodium 40 MG/0.4 ML SYRINGE SC SCH (09:00)
[2018-05-06] MEDS ORDERED: Aspirin 81 mg Enteric Coated Tablet PO SCH (09:00)
[2018-05-06 10:38] LABS: HIV (1/2) Antibody/Antigen Non-Reactive (NonReactive); HIV 1/2 INDEX 0.09 S/CO (<1.00); Syphilis Antibody Nonreactive (Nonreactive); Syphilis Antibody Index 0.05 S/CO (<1.00 Non-Reactive)
[2018-05-06 13:21] LABS: HBSAB Concentration 1.49 mIU/mL; HBSAg Index 0.22 S/CO (0-0.99); Hep B Core Total Ab Non-Reactive (NonReactive); Hep B Core Total Index 0.11 S/CO (0-0.79); Hep B Surf AB Non-Reactive (NonReactive); Hep B Surf Ag Non-Reactive S/CO (NonReactive)
--- NOTE | 2018-05-06 14:25 | MRI ---
BRAIN MRI WITHOUT CONTRAST: DATE: 05/06/18. COMPARISON: None. HISTORY: A 47-year-old female with left-sided weakness, assess for acute infarction. TECHNIQUE: Multiplanar, multisequence MR imaging of the brain is provided without contrast. FINDINGS: The diffusion weighted imaging demonstrates no evidence for acute infarction. The axial gradient ech o imaging demonstrates no evidence for intracranial hemorrhage. Arterial flow voids at axial level of skull appear grossly unremarkable on the T2 weighted imaging. Imaged paranasal sinuses/mastoid air cells unremarkable. There are multiple foci of increased T2 and FLAIR signal within the subcortical, deep, and periventri cular white matter of bilateral frontal lobes. Regional bone marrow signal intensity appears unremarkable. IMPRESSION: No evidence for intracranial hemorrhage or acute infarction. There are numerous subcentimeter foci o f increased T2 and FLAIR signal within the periventricular deep and subcortical white matter of bilat eral frontal lobes. This can be seen on the basis of small-vessel disease. Alternative consideratio ns for these nonspecific lesions include vasculitis, Lyme disease, demyelinating disease (multiple sc lerosis), etc. POS: [facility]
[2018-05-06 15:47] VITALS: TEMP 98.6
--- NOTE | 2018-05-07 04:06 | DIS-2 ---
DATE OF ADMISSION: 05/05/2018 DATE OF DISCHARGE: 05/06/2018 RESIDENT: Dave Godoy DO ADMITTING ATTENDING: Teddy Grier MD DISCHARGE ATTENDING: Viktor Ortiz MD CONSULTS: None. PROCEDURES: CT angio brain and neck with IV contrast with findings of no focal stenosis or occlusions involving the [place] of [place] and vertebrobasilar system. Distal right vertebral artery is dominant, but patent. Distal left vertebral artery is very small in caliber. 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 Patent internal carotids, patent vertebral arteries and a hyperdense nodule on the right lobe of the thyroid and this was stable as compared to 03/23/2018. CT brain on 05/05/2018, no acute intracranial abnormalities, chronic small vessel ischemic changes. A chest x-ray on 05/05/2018, heart and mediastinal contours are stable. Lungs appear clear, no acute findings. Brain MRI, no evidence of intracranial hemorrhage or acute infarction. Numerous subcentimeter foci of increased T2 and flair signal within the periventricular deep and subcortical white matter of the bilateral frontal lobes, can be seen on the basis of small vessel disease and alternative considerations for these nonspecific lesions include demyelinating disease like MS. DISCHARGE MEDICATIONS: Gabapentin 300 mg p.o. daily, nitroglycerin 0.4 mg p.o. q.5 minutes p.r.n. chest pain, lisinopril/hydrochlorothiazide 10/12.5 mg 1 tab p.o. q.a.m. and Coreg 12.5 mg p.o. b.i.d. 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 This is the second such episode of something similar over the past few weeks. In the emergency room, CT and CT angio were conducted both of which were reassuring and did not show CVA. The patient was then admitted for observation and for MRI and to definitively rule out a CVA. MRI and other imaging as documented above. At the time of discharge likely diagnosis is TIA versus complex migraine. Also noted the patient has a significant heart history, a cath done in December at [facility], found an ejection fraction of 30% to 35%. The patient was told at the time that she needed to follow up with a quiller runner. However, this did not happen, after a long discussion with the patient she understands the importance of following up with Cardiology and restart the medication that she had been taking some time. Plan to follow up with me in clinic and additionally she will follow up with Cardiology for further management of her heart failure, especially given her significant cardiac history. Regarding the incidental finding of a left subclavian artery aneurysm, a brief discussion was had with cardiovascular surgeon, Dr. Magdaleno who felt that this did need to be followed in the outpatient setting, although did not need any acute intervention. This was discussed with the patient and she was informed of the necessity to follow up with Dr. Magdaleno in the outpatient setting within next 2 weeks. She understood and agreed with the plan. DISPOSITION: Stable. DISCHARGE INSTRUCTIONS: Location: Home. Diet: Heart healthy. Activity: Ad shanon. Followup: With Dr. Dave Godoy in 1 week, Dr. Thanh Gilmore in [address] Magdaleno in 1 week. ANÍBAL
[2018-05-07 09:50] VITALS: BP 149/81
--- NOTE | 2018-05-08 13:27 | EKG ---
Test Reason : Blood Pressure : / mmHG Vent. Rate : 072 BPM Atrial Rate : 072 BPM P-R Int : 136 ms QRS Dur : 102 ms QT Int : 422 ms P-R-T Axes : 031 -05 171 degrees QTc Int : 462 ms Normal sinus rhythm Incomplete right bundle branch block Left ventricular hypertrophy with repolarization abnormality Abnormal ECG No acute change from previous Confirmed by THOMAS HOBSON ([id number]), content editor FEDERICO LINCOLN ([id number]) on 05/08/2018 1:26:44 PM Referred By: Confirmed By:THOMAS HOBSON
== END 2018-05-06 17:41 | disposition home or self-care (01) | DRG 69 ==
LOC: ERS 16:03 → 2SE 17:57
PROVIDERS: ADMIT Emergency Medicine; ATTEND Emergency Medicine
DX: G45.9 Transient cerebral ischemic attack, unspecified (principal); I50.22 Chronic systolic (congestive) heart failure; G43.909 Migraine, unspecified, not intractable, without status migrainosus; F31.9 Bipolar disorder, unspecified; F41.9 Anxiety disorder, unspecified; I11.0 Hypertensive heart disease with heart failure; G62.9 Polyneuropathy, unspecified; I45.10 Unspecified right bundle-branch block; F19.10 Other psychoactive substance abuse, uncomplicated; I25.2 Old myocardial infarction; F12.10 Cannabis abuse, uncomplicated; F14.10 Cocaine abuse, uncomplicated; I25.10 Atherosclerotic heart disease of native coronary artery without angina pectoris; Z89.512 Acquired absence of left leg below knee; Z98.890 Other specified postprocedural states; Z86.19 Personal history of other infectious and parasitic diseases; Z87.898 Personal history of other specified conditions
CPT/HCPCS: 36415; 36416; 70450; 70496; 70498; 70551; 71045; 80053; 80061; 80306; 80307; 81003; 82553; 83036; 83880; 84484; 84703; 85025; 85610; 85730; 86704; 86706; 86780; 87340; 87389; 87522; 93005; 96365; 96366; 96375; G8978-GP-CL; G8979-GP-CK; G8987-GO-CI; G8988-GO-CI; G8989-GO-CI; J1200; J1650; J1885; J2060; J2765

== ENCOUNTER 2018-06-02 18:33 | Emergency (ER) | payer MEDICARE, OTHER ==
[2018-06-02] MEDS ORDERED: Diazepam 5 MG TAB ONE (21:45)
[2018-06-02] MEDS ORDERED: Ketorolac Tromethamine 30 MG/ML VIAL ONE (21:45)
[2018-06-02] MEDS ORDERED: Dexamethasone 10 MG/ML VIAL ONE (21:47)
== END 2018-06-02 22:20 | disposition home or self-care (01) ==
LOC: ERS 18:33
DX: M54.5 Low back pain (principal); I11.0 Hypertensive heart disease with heart failure; I50.9 Heart failure, unspecified; Z86.73 Personal history of transient ischemic attack (TIA), and cerebral infarction without residual deficits
CPT/HCPCS: 96372; J1100; J1885

== ENCOUNTER 2018-09-14 13:48 | Emergency (ER) | payer MEDICARE ==
[2018-09-14 14:48] LABS: #Eosinphils 0.2 thou/uL (0.0-0.7); #Lymphocytes 1.3 thou/uL (1.20-3.40); #Monocytes 0.5 thou/uL (0.11-0.59); #Neutrophils 6.3 thou/uL (1.40-6.50); %Basophils 0.3 % (0.0-1.0); %Eosinophils 2.2 % (0.0-10.0); %Lymphocytes 15.2 % (21.0-51.0); %Neutrophils 76.2 % (42.0-75.0); Mean Corpuscular HGB CONC 32.1 g/dL (32.0-36.0); Mean Corpuscular Hemoglobin 30.5 pg (27.0-31.0); Mean Corpuscular Volume 94.9 fL (78.0-98.0); Mean Platelet Volume 11.9 fL (7.4-10.4); Platelet Count 111 thou/uL (130-400); RBC Distribution Width 12.5 % (11.5-14.5); Red Blood Cell (RBC) Count 4.25 mill/uL (4.20-5.40); White Blood Cell (WBC) Count 8.3 thou/uL (4.8-10.8)
[2018-09-14 15:08] LABS: Troponin I Less than 0.010 ng/mL (< 0.028)
[2018-09-14 15:11] LABS: ALT (SGPT) 7 U/L (8-55); AST (SGOT) 11 U/L (5-34); Albumin 4.2 g/dL (3.5-5.0); Alkaline Phosphatase 84 U/L (40-150); Anion Gap 11 mmol/L (10-20); BUN (Urea Nitrogen) 19 mg/dL (7.0-18.7); Bilirubin, Total 0.5 mg/dL (0.2-1.2); CK (CPK) 36 U/L (29-168); Calc. Creatinine Clearance 0 mL/min (70-130); Calcium 9.2 mg/dL (7.8-10.44); Carbon Dioxide 25 mmol/L (22-29); Chloride 105 mmol/L (98-107); Estimated GFR-MDRD 54; Globulin 3.3 g/dL (2.4-3.5); Glucose 87 mg/dL (70-105); Potassium 4.4 mmol/L (3.5-5.1); Protein, Total 7.5 g/dL (6.0-8.3); Sodium 137 mmol/L (136-145)
--- NOTE | 2018-09-14 15:27 | RAD ---
SINGLE VIEW OF THE CHEST: Comparison: 05-05-18 History: Shortness of breath. FINDINGS: Single view of the chest shows a normal sized cardiomediastinal silhouette. There is no evidence of c onsolidation, mass, or pleural effusion. The bones are unremarkable. IMPRESSION: No evidence of acute cardiopulmonary disease. POS: TPC
[2018-09-14 16:46] LABS: Troponin I Less than 0.010 ng/mL (< 0.028)
== END 2018-09-14 17:40 | disposition home or self-care (01) ==
LOC: ERS 13:48
DX: R06.02 Shortness of breath (principal); Z86.73 Personal history of transient ischemic attack (TIA), and cerebral infarction without residual deficits; I11.0 Hypertensive heart disease with heart failure; I50.9 Heart failure, unspecified; F41.9 Anxiety disorder, unspecified; F31.9 Bipolar disorder, unspecified; Z79.899 Other long term (current) drug therapy
CPT/HCPCS: 36415; 71045; 80053; 82553; 83880; 84484; 85025; 93005

== ENCOUNTER 2018-11-17 06:09 | Observation (INO) | payer MEDICARE ==
[2018-11-17 07:07] LABS: ALT (SGPT) 12 U/L (8-55); Albumin 4.2 g/dL (3.5-5.0); Alkaline Phosphatase 106 U/L (40-150); BUN (Urea Nitrogen) 16 mg/dL (7.0-18.7); Bilirubin, Total 0.3 mg/dL (0.2-1.2); Calc. Creatinine Clearance 0 mL/min (70-130); Calcium 9.2 mg/dL (7.8-10.44); Carbon Dioxide 26 mmol/L (22-29); Chloride 104 mmol/L (98-107); Estimated GFR-MDRD 51; Glucose 94 mg/dL (70-105); Sodium 139 mmol/L (136-145)
[2018-11-17 07:09] LABS: Globulin 3.6 g/dL (2.4-3.5); Potassium 4.5 mmol/L (3.5-5.1)
[2018-11-17 07:10] LABS: AST (SGOT) 21 U/L (5-34); Anion Gap 14 mmol/L (10-20); Protein, Total 7.8 g/dL (6.0-8.3)
[2018-11-17 07:12] LABS: #Eosinphils 0.2 thou/uL (0.0-0.7); #Lymphocytes 1.8 thou/uL (1.20-3.40); #Monocytes 0.6 thou/uL (0.11-0.59); #Neutrophils 5.4 thou/uL (1.40-6.50); %Basophils 0.6 % (0.0-1.0); %Eosinophils 2.5 % (0.0-10.0); %Lymphocytes 22.1 % (21.0-51.0); %Neutrophils 67.9 % (42.0-75.0); Hemoglobin 12.7 g/dL (12.0-16.0); Mean Corpuscular HGB CONC 33.3 g/dL (32.0-36.0); Mean Corpuscular Hemoglobin 31.7 pg (27.0-31.0); Mean Corpuscular Volume 95.2 fL (78.0-98.0); Mean Platelet Volume 12.4 fL (7.4-10.4); Platelet Count 120 thou/uL (130-400); Platelet Morphology Comment Appears Decreased; RBC Morphology Normal; White Blood Cell (WBC) Count 7.9 thou/uL (4.8-10.8)
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
--- NOTE | 2018-11-17 08:33 | RAD ---
PORTABLE UPRIGHT FRONTAL CHEST RADIOGRAPH: Date: 11-17-18 Comparison: 09-14-18 History: Chest pain. FINDINGS: There is increased density in the right paratracheal region which correlates with a prominent right s ided aortic arch when compared to CT examination performed 03-23-18. Heart and mediastinal contours ar e unchanged. There is no pneumothorax or pleural fluid. There is no focal consolidation or alveolar e parvin. IMPRESSION: Stable appearance of the chest. POS: ZULEMA
[2018-11-17] MEDS ORDERED: Ondansetron PF 4 MG/2 ML Vial IVP PRN (10:54)
[2018-11-17] MEDS ORDERED: Nitroglycerin 0.4 MG TAB (25 Tab Bottle) PO PRN (10:54)
[2018-11-17] MEDS ORDERED: Acetaminophen 325 MG TAB PO PRN (10:54)
[2018-11-17] MEDS ORDERED: Ondansetron ODT 4 MG TAB PO PRN (10:54)
--- NOTE | 2018-11-17 17:10 | PDOC.EVN ---
Event Note - Event Note Event Note: Spoke to Dr. Ruiz's office Cath in December 2017 shows no evidence of occlusion vasospasm which resolved with nitro Dr. Ruiz rec'd avoid cocaine and take isosorbide di-nitrate will discharge home
[2018-11-18] MEDS ORDERED: Enoxaparin Sodium 40 MG/0.4 ML SYRINGE SC SCH (09:00)
--- NOTE | 2018-11-18 09:51 | NM ---
NUCLEAR MEDICINE CARDIAC SPECT SCAN REST ONLY: Date: 11/17/18 HISTORY: Chest pain TECHNIQUE: Patient was injected with 29.1 mCi technetium-99m sestamibi intravenously for resting. The patient re fused to have any additional imaging and left AMA following the resting study, so no stress study cou ld be performed. FINDINGS: There is no evidence for overt infarct. Ischemia cannot be evaluated on a rest only study. IMPRESSION: No evidence for significant infarct. Ischemia cannot be evaluated on a rest only study. POS: FAYE
--- NOTE | 2018-11-19 14:28 | EKG ---
Test Reason : CP Blood Pressure : / mmHG Vent. Rate : 068 BPM Atrial Rate : 068 BPM P-R Int : 134 ms QRS Dur : 098 ms QT Int : 416 ms P-R-T Axes : 062 005 240 degrees QTc Int : 442 ms Normal sinus rhythm Incomplete right bundle branch block Left ventricular hypertrophy with repolarization abnormality Abnormal ECG No changes from 05-DEC-17 Confirmed by VLADIMIR KEATING, JUAN R Tucker ([id number]), editor newspaper NIRALI MARTINS ([id number]) on 11/19/2018 2:28:12 PM Referred By: Confirmed By:JUAN R GILBERT MD
== END 2018-11-17 17:29 | disposition home or self-care (01) ==
LOC: ERS 06:09 → ERHOLD 08:50
PROVIDERS: ADMIT Family Medicine; ATTEND Family Medicine
DX: R07.9 Chest pain, unspecified (principal); I13.0 Hypertensive heart and chronic kidney disease with heart failure and stage 1 through stage 4 chronic kidney disease, or unspecified chronic kidney disease; N18.3 Chronic kidney disease, stage 3 (moderate); I50.9 Heart failure, unspecified; F41.9 Anxiety disorder, unspecified; I25.2 Old myocardial infarction; G62.9 Polyneuropathy, unspecified; B18.2 Chronic viral hepatitis C; Z87.74 Personal history of (corrected) congenital malformations of heart and circulatory system; Z88.8 Allergy status to other drugs, medicaments and biological substances; Z53.21 Procedure and treatment not carried out due to patient leaving prior to being seen by health care provider
CPT/HCPCS: 71045; 78451; 82550; 83880; 84484 ×2; 93005; 99285; A9500; G0378; 36415; 80053; 84443; 85025

== ENCOUNTER 2019-08-16 15:39 | Inpatient (IN) | payer MEDICARE ==
--- NOTE | 2019-08-16 16:22 | RAD ---
EXAM: CHEST ONE VIEW HISTORY: Chest pain COMPARISON: 11/17/2018 FINDINGS: Increased density is again seen in the right paratracheal region corresponding to right-sided aortic arch on prior CT neck on 05/05/2018. Cardiac silhouette is magnified by projection but stable in size. Pulmonary vasculature is within normal limits. The lungs are clear. Degenerative changes are ag ain seen in the spine. IMPRESSION: Stable chest without evidence of an acute cardiopulmonary process.
[2019-08-16 16:40] LABS: #Eosinphils 0.2 thou/uL (0.0-0.7); #Lymphocytes 1.1 thou/uL (1.20-3.40); #Monocytes 0.5 thou/uL (0.11-0.59); #Neutrophils 4.9 thou/uL (1.40-6.50); %Basophils 0.4 % (0.0-1.0); %Eosinophils 2.6 % (0.0-10.0); %Monocytes 6.8 % (0.0-10.0); %Neutrophils 74.3 % (42.0-75.0); Hemoglobin 11.9 g/dL (12.0-16.0); Mean Corpuscular HGB CONC 33.8 g/dL (32.0-36.0); Mean Corpuscular Hemoglobin 30.8 pg (27.0-31.0); Mean Corpuscular Volume 91.3 fL (78.0-98.0); Mean Platelet Volume 11.9 fL (7.4-10.4); Platelet Count 86 thou/uL (130-400); RBC Distribution Width 14.4 % (11.5-14.5); Red Blood Cell (RBC) Count 3.86 mill/uL (4.20-5.40); White Blood Cell (WBC) Count 6.6 thou/uL (4.8-10.8)
[2019-08-16 16:51] LABS: ALT (SGPT) 10 U/L (8-55); AST (SGOT) 16 U/L (5-34); Albumin 3.9 g/dL (3.5-5.0); Alkaline Phosphatase 74 U/L (40-110); Anion Gap 12 mmol/L (10-20); BUN (Urea Nitrogen) 9 mg/dL (7.0-18.7); Bilirubin, Total 0.4 mg/dL (0.2-1.2); Calc. Creatinine Clearance 0 mL/min (70-130); Calcium 8.7 mg/dL (7.8-10.44); Carbon Dioxide 23 mmol/L (22-29); Chloride 109 mmol/L (98-107); Estimated GFR-MDRD 62; Globulin 3.2 g/dL (2.4-3.5); Glucose 113 mg/dL (70-105); Potassium 3.7 mmol/L (3.5-5.1); Protein, Total 7.1 g/dL (6.0-8.3); Sodium 140 mmol/L (136-145)
[2019-08-16 16:58] LABS: Platelet Morphology Comment Appears Decreased; RBC Morphology Normal
[2019-08-16 18:12] LABS: Bilirubin Negative (Negative); Blood, Urine Negative (Negative); Calcium Oxalate Crystals Rare HPF (None Seen); Clarity Clear (Clear); Glucose, Urine (Dipstick) Normal (Negative); Leukocyte Negative Leu/uL (Negative); Nitrite Negative (Negative); Protein, Urine (Dipstick) 30 mg/dL (Neg-Trace); RBC/HPF 0-3 HPF (0-3); Urobilinogen Normal mg/dL (Less than 2)
[2019-08-16 18:15] LABS: Acetaminophen Less than 6.0 mcg/mL (10.0-30.0); Alcohol Less than 10 mg/dL (Less than 10); Salicylate Less than 8.0 mg/dL (15.0-30.0)
[2019-08-16 18:30] LABS: Bacteria/HPF Rare-Few HPF (None Seen)
[2019-08-16 19:12] LABS: BHCG - Serum Negative (NEGATIVE); Pregs Control Background? CLEAR/WHITE (CLR/WHITE); Pregs Control Bar Appear? YES (CONTROL BAR)
[2019-08-16 19:31] LABS: Thyroid Stimulating Hormone 1.6324 uIU/mL (0.35-4.94)
[2019-08-16 20:24] LABS: Troponin I Less than 0.010 ng/mL (< 0.028)
[2019-08-16 20:38] LABS: Amphetamine Not Detected (NotDetected); Benzodiazepine Screen Detected (NotDetected); Cocaine Metabolite Screen Not Detected (NotDetected); Medtox Reader # READER 4; Methamphetamine Not Detected (NotDetected); Opiate Screen Not Detected (NotDetected); Phencyclidine (PCP) Not Detected (NotDetected); THC/Cannabinoid Screen Not Detected (NotDetected); Tricyclic Screen Not Detected (NotDetected)
[2019-08-16] MEDS ORDERED: Metoprolol Tartrate 25 MG TAB ONE (20:38)
[2019-08-16 20:39] LABS: Barbiturates Screen Not Detected (NotDetected); Medtox Control Line Valid? VALID (VALID); Methadone Not Detected (NotDetected); Oxycodone Screen Not Detected (NotDetected)
[2019-08-16] MEDS: Metoprolol Tartrate 25 MG TAB PO SCH (21:07)
[2019-08-16] MEDS ORDERED: ALPRAZolam 0.25 MG TAB ONE (21:17)
[2019-08-16] MEDS: ALPRAZolam 0.25 MG TAB PO PRN (21:52)
[2019-08-16] MEDS ORDERED: Nitroglycerin 0.4 MG TAB 1 EACH ONE (23:21)
[2019-08-16] MEDS: Nitroglycerin 0.4 MG TAB (25 Tab Bottle) PO PRN (23:26)
[2019-08-16 23:34] LABS: Troponin I Less than 0.010 ng/mL (< 0.028)
[2019-08-17] MEDS: Nitroglycerin 0.4 MG TAB (25 Tab Bottle) PO PRN ×3 (00:46→14:37)
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
[2019-08-17] MEDS ORDERED: Lorazepam 2 MG/ML VIAL SLOW IVP PRN (01:41)
[2019-08-17] MEDS ORDERED: Morphine 2 MG/ML SYRINGE SLOW IVP SCH (01:45)
[2019-08-17] MEDS: Lorazepam 2 MG/ML VIAL SLOW IVP PRN (01:56)
[2019-08-17] MEDS: Aspirin 325 mg Enteric Coated Tablet PO SCH (08:54)
[2019-08-17] MEDS: Metoprolol Tartrate 25 MG TAB PO SCH ×2 (08:54→21:10)
[2019-08-17] MEDS: ALPRAZolam 0.25 MG TAB PO PRN (15:15)
--- NOTE | 2019-08-17 17:02 | PDOC.HOSPP ---
- Subjective Subjective: Nurses report some seizure type activity last night. Says she has had seizures before. No problems reported at the time of the exam. - Objective Vital Signs & Weight: Vital Signs (12 hours) Temp Pulse Resp BP Pulse Ox 08/17/19 14:40 97.9 F 73 17 120/72 94 L 08/17/19 07:58 98.1 F 73 16 126/76 96 08/17/19 06:45 98 Weight Admit Weight 204 lb 12.8 oz Weight 204 lb 12.8 oz Result Diagrams: 08/16/19 16:23 08/16/19 16:23 Hospitalist ROS - Medication Medications: Active Medications Generic Name Dose Route Start Last Admin Trade Name Freq PRN Reason Stop Dose Admin Alprazolam 0.25 mg 08/16/19 20:33 08/17/19 15:15 Xanax PO 0.25 mg QIDPRN PRN Administration Anxiety Aspirin 325 mg 08/17/19 09:00 08/17/19 08:54 Ecotrin PO 325 mg DAILY BRE Administration Lorazepam 0.5 mg 08/17/19 01:48 08/17/19 01:56 Ativan SLOW IVP 0.5 mg Q6H PRN Administration Seizures Metoprolol Tartrate 12.5 mg 08/16/19 21:00 08/17/19 08:54 Lopressor PO 12.5 mg BID BRE Administration Nitroglycerin 0.4 mg 08/16/19 20:31 08/17/19 14:37 Nitrostat PO 0.4 mg Q5MIN PRN Administration Chest Pain - Exam General Appearance: NAD, awake alert Neck: supple, symmetric, no JVD, no thyromegaly, no lymphadenopathy, no carotid bruit Heart: RRR, no murmur, no gallops, no rubs, normal peripheral pulses Respiratory: CTAB, no wheezes, no rales, no ronchi, normal chest expansion, no tachypnea, normal percussion Gastrointestinal: soft, non-tender, non-distended, normal bowel sounds, no palpable masses, no hepatomegaly, no splenomegaly, no bruit Extremities: no cyanosis, no clubbing, no edema Skin: normal turgor Musculoskeletal: normal tone Musculoskeletal - other findings: Left BKA Psychiatric: normal affect, normal behavior, A&O x 3 Hosp A/P (1) Chest pain Code(s): R07.9 - CHEST PAIN, UNSPECIFIED Status: Acute (2) HIV (human immunodeficiency virus infection) Code(s): B20 - HUMAN IMMUNODEFICIENCY VIRUS [HIV] DISEASE Status: Acute (3) Seizure Code(s): R56.9 - UNSPECIFIED CONVULSIONS Status: Acute (4) Suicidal ideation Code(s): R45.851 - SUICIDAL IDEATIONS Status: Acute (5) Anxiety Code(s): F41.9 - ANXIETY DISORDER, UNSPECIFIED Status: Chronic (6) Bipolar 1 disorder Code(s): F31.9 - BIPOLAR DISORDER, UNSPECIFIED Status: Chronic (7) Depression Code(s): F32.9 - MAJOR DEPRESSIVE DISORDER, SINGLE EPISODE, UNSPECIFIED Status : Chronic (8) HTN (hypertension) Code(s): I10 - ESSENTIAL (PRIMARY) HYPERTENSION Status: Chronic (9) Hepatitis C Code(s): B19.20 - UNSPECIFIED VIRAL HEPATITIS C WITHOUT HEPATIC COMA Status: Chronic (10) Past history of tetralogy of Fallot, post surgical repair Code(s): Z98.890 - OTHER SPECIFIED POSTPROCEDURAL STATES; Z87.74 - PERSONAL HISTORY OF CONGENITAL MALFORM OF HEART AND CIRC SYS Status: Chronic (11) Substance abuse Code(s): F19.10 - OTHER PSYCHOACTIVE SUBSTANCE ABUSE, UNCOMPLICATED Status: Chronic (12) Non-ischemic cardiomyopathy Code(s): I42.8 - OTHER CARDIOMYOPATHIES Status: Chronic - Plan She has a history of chest pain that was evaluated by heart cath with no atherosclerotic disease. Do not believe her chest pain is ischemic angina. Suspect it is non-cardiac and likely anxiety related. Echo is essentially unchanged from prior. No further cardiac workup planned. Neuro consult for seizure v. pseudoseizure. She was on Clonazepam previously. Not clear how much she was taking. Will start that now to avoid lowering the seizure threshold by WD. Will consult Dr. Florentino in light of the recent HIV dx. Will try to get lab results from the [facility] in [place] where the test was done.
--- NOTE | 2019-08-17 18:16 | MRI ---
MRI OF BRAIN PERFORMED WITHOUT CONTRAST ENHANCEMENT: 08/17/19 HISTORY: Question of white matter lesion progression. The ventricular and cisternal system is within normal limits. There are scattered foci of T2 and FLAI R hyperintensity seen within the periventricular and subcortical white matter, the appearance is unch anged since the previous exam. No hemorrhage identified. No signs of any acute infarct. No mass effec t. IMPRESSION: Stable white matter lesions. Differential considerations are as previously discussed on the 05/06/18 M RI examination. POS: TPC
[2019-08-17] MEDS ORDERED: FLU VACC QS2019-20(6MOS UP)/PF 60 MCG/0.5 ML SYRINGE IM ONE (21:00)
[2019-08-17] MEDS: Acetaminophen 325 MG TAB PO PRN (21:11)
[2019-08-17] MEDS: clonazePAM 1 MG TAB PO SCH (21:11)
[2019-08-18] MEDS: Metoprolol Tartrate 25 MG TAB PO SCH ×2 (08:20→20:25)
[2019-08-18] MEDS: Aspirin 325 mg Enteric Coated Tablet PO SCH (08:20)
[2019-08-18] MEDS: clonazePAM 1 MG TAB PO SCH ×2 (08:20→20:26)
[2019-08-18] MEDS: Lorazepam 2 MG/ML VIAL SLOW IVP PRN (10:25)
[2019-08-18] MEDS ORDERED: Loratadine 10 MG TAB PO SCH (12:30)
[2019-08-18] MEDS ORDERED: Cetirizine HCl 10 MG TAB PO SCH (12:30)
[2019-08-18 15:17] LABS: Syphilis Antibody Nonreactive (Nonreactive); Syphilis Antibody Index 0.16 S/CO (<1.00 Non-Reactive)
[2019-08-18] MEDS: ALPRAZolam 0.25 MG TAB PO PRN (18:11)
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
[2019-08-18] MEDS: Acetaminophen 325 MG TAB PO PRN (20:26)
--- NOTE | 2019-08-18 22:45 | PDOC.HOSPP ---
- Subjective Subjective: Feels ok. A little tired. Says she has pain all over her body. - Objective Vital Signs & Weight: Vital Signs (12 hours) Temp Pulse Resp BP BP Pulse Ox 08/18/19 19:24 96 08/18/19 18:55 98.3 F 76 16 135/85 96 08/18/19 16:00 97.9 F 72 16 116/66 97 08/18/19 12:00 97.7 F 72 13 122/78 96 Weight Admit Weight 204 lb 12.8 oz Weight 204 lb 12.8 oz Result Diagrams: 08/16/19 16:23 08/16/19 16:23 Hospitalist ROS - Medication Medications: Active Medications Generic Name Dose Route Start Last Admin Trade Name Freq PRN Reason Stop Dose Admin Acetaminophen 650 mg 08/17/19 20:25 08/18/19 20:26 Tylenol PO 650 mg Q6H PRN Administration Headache/Fever or Pain Alprazolam 0.25 mg 08/16/19 20:33 08/18/19 18:11 Xanax PO 0.25 mg QIDPRN PRN Administration Anxiety Aspirin 325 mg 08/17/19 09:00 08/18/19 08:20 Ecotrin PO 325 mg DAILY BRE Administration Clonazepam 1 mg 08/17/19 21:00 08/18/19 20:26 Klonopin PO 1 mg BID BRE Administration Lorazepam 0.5 mg 08/17/19 01:48 08/18/19 10:25 Ativan SLOW IVP 0.5 mg Q6H PRN Administration Seizures Metoprolol Tartrate 12.5 mg 08/16/19 21:00 08/18/19 20:25 Lopressor PO 12.5 mg BID BRE Administration Nitroglycerin 0.4 mg 08/16/19 20:31 08/17/19 14:37 Nitrostat PO 0.4 mg Q5MIN PRN Administration Chest Pain Sodium Chloride 10 ml 08/17/19 21:00 08/18/19 20:28 Flush - Normal Saline IVF 10 ml Q12HR BRE Administration - Exam General Appearance: NAD, awake alert Heart: RRR, no murmur, no gallops, no rubs, normal peripheral pulses Respiratory: CTAB, no wheezes, no rales, no ronchi, normal chest expansion, no tachypnea, normal percussion Gastrointestinal: soft, non-tender, non-distended, normal bowel sounds, no palpable masses, no hepatomegaly, no splenomegaly, no bruit Skin: normal turgor Neurological: cranial nerve grossly intact, normal sensation to touch, no weakness, no focal deficits, no new deficit Musculoskeletal: normal tone, normal strength Psychiatric: normal affect, normal behavior, A&O x 3 Hosp A/P (1) Chest pain Code(s): R07.9 - CHEST PAIN, UNSPECIFIED Status: Acute (2) HIV (human immunodeficiency virus infection) Code(s): B20 - HUMAN IMMUNODEFICIENCY VIRUS [HIV] DISEASE Status: Acute (3) Seizure Code(s): R56.9 - UNSPECIFIED CONVULSIONS Status: Acute (4) Suicidal ideation Code(s): R45.851 - SUICIDAL IDEATIONS Status: Acute (5) Anxiety Code(s): F41.9 - ANXIETY DISORDER, UNSPECIFIED Status: Chronic (6) Bipolar 1 disorder Code(s): F31.9 - BIPOLAR DISORDER, UNSPECIFIED Status: Chronic (7) Depression Code(s): F32.9 - MAJOR DEPRESSIVE DISORDER, SINGLE EPISODE, UNSPECIFIED Status : Chronic (8) HTN (hypertension) Code(s): I10 - ESSENTIAL (PRIMARY) HYPERTENSION Status: Chronic (9) Hepatitis C Code(s): B19.20 - UNSPECIFIED VIRAL HEPATITIS C WITHOUT HEPATIC COMA Status: Chronic (10) Past history of tetralogy of Fallot, post surgical repair Code(s): Z98.890 - OTHER SPECIFIED POSTPROCEDURAL STATES; Z87.74 - PERSONAL HISTORY OF CONGENITAL MALFORM OF HEART AND CIRC SYS Status: Chronic (11) Substance abuse Code(s): F19.10 - OTHER PSYCHOACTIVE SUBSTANCE ABUSE, UNCOMPLICATED Status: Chronic (12) Non-ischemic cardiomyopathy Code(s): I42.8 - OTHER CARDIOMYOPATHIES Status: Chronic - Plan She has a history of chest pain that was evaluated by heart cath with no atherosclerotic disease. Do not believe her chest pain is ischemic angina. Suspect it is non-cardiac and likely anxiety related. Echo is essentially unchanged from prior. No further cardiac workup planned. Neuro consult for seizure v. pseudoseizure. She was on Clonazepam previously. Not clear how much she was taking. Will start that now to avoid lowering the seizure threshold by WD. MRI unchanged from prior in 04/26. Small lesions likely related to prior cocaine abuse. EEG pending. Will consult Dr. Florentino in light of the recent HIV dx. Will try to get lab results from the [facility] in [place] where the test was done. Await EEG results. Will not give opioids for generalized pain given her history.
--- NOTE | 2019-08-18 22:56 | CON ---
DATE OF CONSULTATION: 08/18/2019 CONSULTING PHYSICIAN: Hospitalist Service. IMPRESSION: 1. 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 2. Abnormal MRI, likely secondary to prior cocaine use. PLAN: 1. Review vasculitis studies as they return. 2. Continue Klonopin 1 mg twice a day. HISTORY OF PRESENT ILLNESS: Ms. Sanches is a 48-year-old white female, who was admitted for complaints of chest pain. She reportedly also had a long psychiatric history, has been in the Behavioral Health unit. She was recently diagnosed as HIV positive. She has been in the facility several times for chest pain workups. She reports a history of seizure-like episodes where she can hear what is going on and feel herself shaking on both sides, but does not lose total awareness. She had an MRI of the brain done, which showed several subcortical white matter lesions primarily in the frontal lobes. No enhancement was present. This was similar to the findings seen in 2016. Prior inflammatory studies were elevated, but on repeating them, her sedimentation rate and CRP were normal. She denies any focal neurologic deficits. She is not complaining of any chest pain at this point. PAST MEDICAL HISTORY: Left BKA secondary to osteomyelitis, tetralogy of Fallot, hypertension, mild cardiomyopathy with ejection fraction of 40% to 45%, hepatitis C, anxiety, depression. SOCIAL HISTORY: She is a nonsmoker and does not drink. She admits to cocaine use in the past. CURRENT MEDICATIONS: None. ALLERGIES: PHENOBARBITAL. REVIEW OF SYSTEMS: Ten-system review of systems is otherwise negative. PHYSICAL EXAMINATION: GENERAL: She is a somewhat overweight middle-aged woman, sitting up in bed, in no distress. VITAL SIGNS: Blood pressure 129/78, pulse 78, respirations 18, saturations 98%. HEENT: Pupils are equal and reactive. Conjunctivae are clear. Oropharynx is clear. Cranium, normocephalic and atraumatic. NECK: Supple, no lymphadenopathy. EXTREMITIES: No cyanosis or edema. NEUROLOGIC: She is alert and cooperative. Her speech is fluent and clear. Cranial nerves are intact. Motor exam shows equal route service manager strength. Sensation is intact to touch. No abnormal movements are seen. LABORATORY DATA: EEG results are pending. SUMMARY: Given the description of the episodes, the events are nonepileptic in origin. Given her long psychiatric history, I suspect that they are pseudoseizures. Her abnormal findings on her MRI are stable and I suspect are going to be related to her prior drug use. Job ID: [id number]
--- NOTE | 2019-08-18 23:18 | EKG ---
Test Reason : CHESTPAIN Blood Pressure : / mmHG Vent. Rate : 061 BPM Atrial Rate : 061 BPM P-R Int : 134 ms QRS Dur : 100 ms QT Int : 462 ms P-R-T Axes : - - 195 degrees QTc Int : 465 ms Normal sinus rhythm . difuse T-wave inversions. Can not rule out ischemia. Incomplete right bundle branch block Left ventricular hypertrophy with repolarization abnormality Abnormal ECG When compared with ECG of 16-AUG-2019 16:03, (Unconfirmed) No significant change was found Confirmed by Linda FARMER ([id number]) on 08/18/2019 11:18:35 PM Referred By: Confirmed By:Linda FARMER
[2019-08-19] MEDS: clonazePAM 1 MG TAB PO SCH ×2 (09:35→20:19)
[2019-08-19] MEDS: Aspirin 325 mg Enteric Coated Tablet PO SCH (09:35)
[2019-08-19] MEDS: Metoprolol Tartrate 25 MG TAB PO SCH ×2 (09:35→20:19)
--- NOTE | 2019-08-19 14:30 | EEG ---
Referring Physician: Yuliana SPICER EEG # [id number] TEST TYPE: ROUTINE PORTABLE INPATIENT REPORT: AN EEG USING THE INTERNATIONAL TEN-TWENTY SYSTEM OF ELECTRODE PLACEMENT WAS PERFORMED. The waking background is a 10 hertz medium amplitude alpha frequency. The patient remained awake throughout the study. Photic stimulation was unremarkable. No epileptiform features were seen. IMPRESSION: THIS IS A NORMAL AWAKE EEG. Sales Apprentice: JESSEE Media Services Director: MARIAH.[email or web address] SPANGLER
[2019-08-19] MEDS: ALPRAZolam 0.25 MG TAB PO PRN (14:48)
[2019-08-19 15:23] LABS: ANA Symphony (Qualitative) Negative (Negative); ANA Symphony (Quantitative) 0.2 Ratio (< 0.7 Negative); SSA/Ro IgG Antibody Less than 0.3 EliAU/mL (<7 Negative); SSB/La IgG Antibody Less than 0.3 EliAU/mL (<7 Negative); dsDNA IgG Antibody 1.1 IU/mL (<10 Negative)
[2019-08-19] MEDS: Acetaminophen 325 MG TAB PO PRN (16:19)
--- NOTE | 2019-08-19 17:30 | PDOC.HOSPP ---
- Subjective Subjective: Feels ok. No complaints. Just tired. - Objective Vital Signs & Weight: Vital Signs (12 hours) Temp Pulse Resp BP Pulse Ox 08/19/19 15:48 98.0 F 68 17 127/73 100 08/19/19 11:21 98.5 F 65 18 117/74 98 08/19/19 07:31 97.6 F 72 16 124/70 98 Weight Admit Weight 204 lb 12.8 oz Weight 204 lb 12.8 oz Result Diagrams: 08/16/19 16:23 08/16/19 16:23 Hospitalist ROS - Medication Medications: Active Medications Generic Name Dose Route Start Last Admin Trade Name Freq PRN Reason Stop Dose Admin Acetaminophen 650 mg 08/17/19 20:25 08/19/19 16:19 Tylenol PO 650 mg Q6H PRN Administration Headache/Fever or Pain Alprazolam 0.25 mg 08/16/19 20:33 08/19/19 14:48 Xanax PO 0.25 mg QIDPRN PRN Administration Anxiety Aspirin 325 mg 08/17/19 09:00 08/19/19 09:35 Ecotrin PO 325 mg DAILY BRE Administration Clonazepam 1 mg 08/17/19 21:00 08/19/19 09:35 Klonopin PO 1 mg BID BRE Administration Lorazepam 0.5 mg 08/17/19 01:48 08/18/19 10:25 Ativan SLOW IVP 0.5 mg Q6H PRN Administration Seizures Metoprolol Tartrate 12.5 mg 08/16/19 21:00 08/19/19 09:35 Lopressor PO 12.5 mg BID BRE Administration Nitroglycerin 0.4 mg 08/16/19 20:31 08/17/19 14:37 Nitrostat PO 0.4 mg Q5MIN PRN Administration Chest Pain Sodium Chloride 10 ml 08/17/19 21:00 08/19/19 09:35 Flush - Normal Saline IVF 10 ml Q12HR BRE Administration - Exam General Appearance: NAD, awake alert Heart: RRR, no murmur, no gallops, no rubs, normal peripheral pulses Respiratory: CTAB, no wheezes, no rales, no ronchi, normal chest expansion, no tachypnea, normal percussion Gastrointestinal: soft, non-tender, non-distended, normal bowel sounds, no palpable masses, no hepatomegaly, no splenomegaly, no bruit Extremities: no cyanosis, no clubbing, no edema Extremities - other findings: Left BKA Skin: normal turgor Neurological: no focal deficits Musculoskeletal: normal tone Psychiatric: normal affect, normal behavior, A&O x 3 Hosp A/P (1) Chest pain Code(s): R07.9 - CHEST PAIN, UNSPECIFIED Status: Acute (2) HIV (human immunodeficiency virus infection) Code(s): B20 - HUMAN IMMUNODEFICIENCY VIRUS [HIV] DISEASE Status: Acute (3) Seizure Code(s): R56.9 - UNSPECIFIED CONVULSIONS Status: Acute (4) Suicidal ideation Code(s): R45.851 - SUICIDAL IDEATIONS Status: Acute (5) Anxiety Code(s): F41.9 - ANXIETY DISORDER, UNSPECIFIED Status: Chronic (6) Bipolar 1 disorder Code(s): F31.9 - BIPOLAR DISORDER, UNSPECIFIED Status: Chronic (7) Depression Code(s): F32.9 - MAJOR DEPRESSIVE DISORDER, SINGLE EPISODE, UNSPECIFIED Status : Chronic (8) HTN (hypertension) Code(s): I10 - ESSENTIAL (PRIMARY) HYPERTENSION Status: Chronic (9) Hepatitis C Code(s): B19.20 - UNSPECIFIED VIRAL HEPATITIS C WITHOUT HEPATIC COMA Status: Chronic (10) Past history of tetralogy of Fallot, post surgical repair Code(s): Z98.890 - OTHER SPECIFIED POSTPROCEDURAL STATES; Z87.74 - PERSONAL HISTORY OF CONGENITAL MALFORM OF HEART AND CIRC SYS Status: Chronic (11) Substance abuse Code(s): F19.10 - OTHER PSYCHOACTIVE SUBSTANCE ABUSE, UNCOMPLICATED Status: Chronic (12) Non-ischemic cardiomyopathy Code(s): I42.8 - OTHER CARDIOMYOPATHIES Status: Chronic - Plan She has a history of chest pain that was evaluated by heart cath with no atherosclerotic disease. Do not believe her chest pain is ischemic angina. Suspect it is non-cardiac and likely anxiety related. Echo is essentially unchanged from prior. No further cardiac workup planned. Neuro consult for seizure v. pseudoseizure. She was on Clonazepam previously. Not clear how much she was taking. Will start that now to avoid lowering the seizure threshold by WD. MRI unchanged from prior in 04/26. Small lesions likely related to prior cocaine abuse. EEG normal per verbal report (electronic reporting system down) Dr. Florentino consulted. Additional workup negative. Will follow as outpatient. Will not give opioids for generalized pain given her history. Medically stable. Eval'd by [facility]. Recommends IP psych. Await disposition.
[2019-08-19 19:08] LABS: %CD4 (Helper/Inducer) 22.7 % (30.8-58.5); Absolute CD4 250 /uL (359-1519); Lymphocytes/Gated Cell Count 1.1 x10E3/uL (0.7-3.1); Total Lymphocyte 22 % (Not Estab.); WBC Total Count 4.9 x10E3/uL (3.4-10.8)
[2019-08-20] MEDS: clonazePAM 1 MG TAB PO SCH ×2 (09:07→20:09)
[2019-08-20] MEDS: Aspirin 325 mg Enteric Coated Tablet PO SCH (09:07)
[2019-08-20] MEDS: Metoprolol Tartrate 25 MG TAB PO SCH ×2 (09:08→20:08)
[2019-08-20] MEDS: Loratadine 10 MG TAB PO PRN (09:10)
[2019-08-20 11:10] LABS: LOG10 HIV-1 RNA 5.238 (.)
[2019-08-20] MEDS: ALPRAZolam 0.25 MG TAB PO PRN (15:07)
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
[2019-08-20] MEDS: Raltegravir Potassium 400 MG TAB PO SCH (20:09)
--- NOTE | 2019-08-20 21:07 | PDOC.HOSPP ---
- Subjective Subjective: Feels fine. Denies any problems and any chest pain. - Objective Vital Signs & Weight: Vital Signs (12 hours) Temp Pulse Resp BP Pulse Ox 08/20/19 12:09 97.5 F L 71 16 109/53 L 99 Weight Admit Weight 204 lb 12.8 oz Weight 204 lb 12.8 oz Result Diagrams: 08/16/19 16:23 08/16/19 16:23 Hospitalist ROS - Medication Medications: Active Medications Generic Name Dose Route Start Last Admin Trade Name Freq PRN Reason Stop Dose Admin Acetaminophen 650 mg 08/17/19 20:25 08/19/19 16:19 Tylenol PO 650 mg Q6H PRN Administration Headache/Fever or Pain Alprazolam 0.25 mg 08/16/19 20:33 08/20/19 15:07 Xanax PO 0.25 mg QIDPRN PRN Administration Anxiety Aspirin 325 mg 08/17/19 09:00 08/20/19 09:07 Ecotrin PO 325 mg DAILY BRE Administration Clonazepam 1 mg 08/17/19 21:00 08/20/19 20:09 Klonopin PO 1 mg BID BRE Administration Loratadine 10 mg 08/20/19 08:37 08/20/19 09:10 Claritin PO 10 mg DAILYPRN PRN Administration Sinus Symptoms Lorazepam 0.5 mg 08/17/19 01:48 08/18/19 10:25 Ativan SLOW IVP 0.5 mg Q6H PRN Administration Seizures Metoprolol Tartrate 12.5 mg 08/16/19 21:00 08/20/19 20:08 Lopressor PO 12.5 mg BID BRE Administration Nitroglycerin 0.4 mg 08/16/19 20:31 08/17/19 14:37 Nitrostat PO 0.4 mg Q5MIN PRN Administration Chest Pain Raltegravir 400 mg 08/20/19 21:00 08/20/19 20:09 Isentress PO 400 mg BID BRE Administration Sodium Chloride 10 ml 08/17/19 21:00 08/20/19 20:10 Flush - Normal Saline IVF 10 ml Q12HR BRE Administration - Exam General Appearance: NAD, awake alert Heart: RRR, no murmur, no gallops, no rubs, normal peripheral pulses Respiratory: CTAB, no wheezes, no rales, no ronchi, normal chest expansion, no tachypnea, normal percussion Gastrointestinal: soft, non-tender, non-distended, normal bowel sounds, no palpable masses, no hepatomegaly, no splenomegaly, no bruit Skin: normal turgor Musculoskeletal: normal tone, normal strength, no muscle wasting Psychiatric: normal affect, normal behavior, A&O x 3 Hosp A/P (1) Chest pain Code(s): R07.9 - CHEST PAIN, UNSPECIFIED Status: Acute (2) HIV (human immunodeficiency virus infection) Code(s): B20 - HUMAN IMMUNODEFICIENCY VIRUS [HIV] DISEASE Status: Acute (3) Seizure Code(s): R56.9 - UNSPECIFIED CONVULSIONS Status: Acute (4) Suicidal ideation Code(s): R45.851 - SUICIDAL IDEATIONS Status: Acute (5) Anxiety Code(s): F41.9 - ANXIETY DISORDER, UNSPECIFIED Status: Chronic (6) Bipolar 1 disorder Code(s): F31.9 - BIPOLAR DISORDER, UNSPECIFIED Status: Chronic (7) Depression Code(s): F32.9 - MAJOR DEPRESSIVE DISORDER, SINGLE EPISODE, UNSPECIFIED Status : Chronic (8) HTN (hypertension) Code(s): I10 - ESSENTIAL (PRIMARY) HYPERTENSION Status: Chronic (9) Hepatitis C Code(s): B19.20 - UNSPECIFIED VIRAL HEPATITIS C WITHOUT HEPATIC COMA Status: Chronic (10) Past history of tetralogy of Fallot, post surgical repair Code(s): Z98.890 - OTHER SPECIFIED POSTPROCEDURAL STATES; Z87.74 - PERSONAL HISTORY OF CONGENITAL MALFORM OF HEART AND CIRC SYS Status: Chronic (11) Substance abuse Code(s): F19.10 - OTHER PSYCHOACTIVE SUBSTANCE ABUSE, UNCOMPLICATED Status: Chronic (12) Non-ischemic cardiomyopathy Code(s): I42.8 - OTHER CARDIOMYOPATHIES Status: Chronic - Plan She has a history of chest pain that was evaluated by heart cath with no atherosclerotic disease. Do not believe her chest pain is ischemic angina. Suspect it is non-cardiac and likely anxiety related. Echo is essentially unchanged from prior. No further cardiac workup planned. Neuro consult for seizure v. pseudoseizure. MRI unchanged from prior in 04/26. Small lesions likely related to prior cocaine abuse. EEG normal No seizure meds. Dr. Florentino consulted. HIV positivity confirmed. Dr. Florentino will initiate anti-retrovirals. CD4 count low at 240. Will not give opioids for generalized pain given her history. Medically stable. Eval'd by [facility]. Recommends IP psych. Await disposition. Denied by two facilities because of the new diagnosis of HIV.
[2019-08-20] MEDS: Lorazepam 2 MG/ML VIAL SLOW IVP PRN (21:34)
[2019-08-20 23:48] LABS: Chlam.trachomatis by PCR,Urine Not Detected (NotDetected)
[2019-08-21] MEDS: Nitroglycerin 0.4 MG TAB (25 Tab Bottle) PO PRN ×2 (00:06→00:12)
[2019-08-21] MEDS ORDERED: Morphine 2 MG/ML SYRINGE SLOW IVP SCH (01:00)
[2019-08-21 01:24] LABS: Troponin I Less than 0.010 ng/mL (< 0.028)
[2019-08-21 06:50] LABS: Troponin I Less than 0.010 ng/mL (< 0.028)
[2019-08-21] MEDS: Emtricitabine/Tenofovir 200-300 MG TAB PO SCH (10:05)
[2019-08-21] MEDS: Metoprolol Tartrate 25 MG TAB PO SCH ×2 (10:06→19:58)
[2019-08-21] MEDS: clonazePAM 1 MG TAB PO SCH ×2 (10:06→19:57)
[2019-08-21] MEDS: Aspirin 325 mg Enteric Coated Tablet PO SCH (10:06)
[2019-08-21] MEDS: Raltegravir Potassium 400 MG TAB PO SCH ×2 (10:06→19:58)
[2019-08-21] MEDS: ALPRAZolam 0.25 MG TAB PO PRN ×2 (11:25→22:37)
[2019-08-21 13:56] LABS: Ref Lab Test Ordered HIV PENOSENSE + INTE; Reference Lab Name LABCORP
--- NOTE | 2019-08-21 15:30 | CON ---
DATE OF CONSULTATION: 08/21/2019 REASON FOR CONSULTATION: Abnormal EKG. PRIMARY COMMUNITY CASE MANAGER: Here at [place] is Dr. Aleksander Krueger. HISTORY OF PRESENT ILLNESS: Ms. Mere Sanches is a 48-year-old woman with history of tetralogy of Fallot. She states she had obviously repaired as a child. She said recently she has been having pain in the middle of her chest, in left side of her chest, goes in the left arm. She said she underwent cardiac catheterization 2 years ago at [facility] by Dr. Ruiz and that was normal except her arteries "spasms." Those records are not available to me. The patient also is followed for HIV. MEDICATIONS: 1. Klonopin. 2. Xanax. 3. Ativan. 4. Lopressor. 5. Nitrostat. 6. Aspirin. 7. Claritin. 8. Raltegravir. 9. Clonazepam. 10. Truvada. PAST HISTORY: 1. Prior below-knee amputation for complications of infection with osteomyelitis, left foot. 2. Cardiomyopathy. 3. History of cocaine abuse in the past. REVIEW OF SYSTEMS: CONSTITUTIONAL: No significant weight gain or loss. VISION: No changes. HEARING: No changes. PULMONARY: No cough or wheezing. CARDIAC: Positive for chest pain. GASTROINTESTINAL: No nausea, vomiting, or diarrhea. PSYCHIATRIC: She said she is suicidal. PHYSICAL EXAMINATION: VITAL SIGNS: On examination, her blood pressure 120/67, pulse 70. EYES: Sclerae, nonicteric. MOUTH: Mucous membranes moist. NECK: Supple. No lymphadenopathy. LUNGS: Clear. CARDIAC: Normal S1. Normal S2. There is no murmur, rub, or gallop. ABDOMEN: Soft and nontender. EXTREMITIES: There is previous left below-knee amputation. LABORATORY DATA: Cardiac enzymes, troponins were all normal. In the EKG, the patient does have T-wave inversions in the anterior chest leads as well as lead I, II, and aVL. ASSESSMENT: 1. History of tetralogy of Fallot. 2. Most recent echocardiogram done this week. Ejection fraction 40% to 45%. 3. Probably noncardiac chest pain. PLAN: 1. Try to obtain a cath report from the [facility]. 2. Dr. Krueger to see the patient tomorrow if the patient has normal coronary arteries. At some point, she should be evaluated and followed by a physician pediatrician. Job ID: [id number]
[2019-08-21] MEDS: Acetaminophen 325 MG TAB PO PRN (17:18)
--- NOTE | 2019-08-21 17:49 | PRG ---
DATE OF SERVICE: 08/21/2019 SUBJECTIVE: The patient is seen and examined at the bedside. She still has some chest pain on and off. She was just seen by Dr. Johnston for Cardiology evaluation. OBJECTIVE: VITAL SIGNS: Blood pressure is 101/57, pulse is 65, temperature 98.5, respirations 18, and O2 saturation is 97% on room air. HEENT: Head is atraumatic and normocephalic. Eyes are PERRLA. Sclerae are nonicteric. Oral mucosa is moist. NECK: Supple. LUNGS: Clear. HEART: S1 and S2 normal. ABDOMEN: Soft, nontender, and obese. EXTREMITIES: 1+ peripheral edema similar bilateral. NEUROLOGIC: Intact. LABORATORY DATA: Labs showed first troponin 0.010. IMPRESSION: 1. Chest pain, recurrent. Electrocardiogram showed some flipped T-waves in precordial leads and some questionable depression of ST-segment in main leads. Network Support was asked to see the patient to evaluate. Apparently, the patient had catheterization done at [facility]. We are going to obtain the records from the [facility]. First set of cardiac enzymes came back normal, but her LVEF was estimated at 40%. 2. HIV. 3. Seizure. 4. Suicidal ideations. 5. Anxiety. 6. Bipolar disorder. 7. Depression. 8. Hypertension. 9. Hepatitis C. 10. History of tetralogy of Fallot post surgical repair. 11. Substance abuse. 12. Nonischemic cardiomyopathy. PLAN: We are going to obtain cardiac catheterization results from the [facility]. We are waiting for the placement in the [facility] for her suicidal ideations and psych problem. Also, we will continue antiretrovirals and when the [facility] hospital transfer arranged tomorrow and we have clear picture with her cardiac issues, we will send her there. Job ID: [id number]
[2019-08-21] MEDS: Lorazepam 2 MG/ML VIAL SLOW IVP PRN (19:57)
[2019-08-22] MEDS ORDERED: Gabapentin 300 MG CAP PO SCH (00:15)
[2019-08-22 06:50] LABS: Anion Gap 12 mmol/L (10-20); BUN (Urea Nitrogen) 21 mg/dL (7.0-18.7); Calc. Creatinine Clearance 112 mL/min (70-130); Calcium 9.2 mg/dL (7.8-10.44); Carbon Dioxide 24 mmol/L (22-29); Chloride 104 mmol/L (98-107); Estimated GFR-MDRD 66; Glucose 81 mg/dL (70-105); Sodium 136 mmol/L (136-145)
[2019-08-22] MEDS: Emtricitabine/Tenofovir 200-300 MG TAB PO SCH (10:24)
[2019-08-22] MEDS: Aspirin 325 mg Enteric Coated Tablet PO SCH (10:24)
[2019-08-22] MEDS: Metoprolol Tartrate 25 MG TAB PO SCH ×2 (10:25→21:18)
[2019-08-22] MEDS: Raltegravir Potassium 400 MG TAB PO SCH ×2 (10:25→21:18)
[2019-08-22] MEDS: clonazePAM 1 MG TAB PO SCH ×2 (10:25→21:18)
[2019-08-22] MEDS: Acetaminophen 325 MG TAB PO PRN (10:36)
[2019-08-22] MEDS ORDERED: traMADol HCl 50 MG TAB PO PRN (13:30)
[2019-08-22] MEDS ORDERED: Lorazepam 2 MG/ML VIAL SLOW IVP PRN (13:40)
--- NOTE | 2019-08-22 14:10 | PRG ---
DATE OF SERVICE: 08/22/2019 SUBJECTIVE: The patient is seen and examined at the bedside. She is complaining about muscle aches all over her body. She states that she has those episodes of muscle aches on and off after she was diagnosed with HIV. OBJECTIVE: VITAL SIGNS: Blood pressure is 102/65, pulse is 95, temperature is 98.3, respirations 18, O2 saturation is 95% on room air. HEENT: Head is atraumatic and normocephalic. Eyes are PERRLA. Sclerae are nonicteric. Oral mucosa is moist. Her face looks flushed. NECK: Supple. LUNGS: Clear. HEART: S1, S2 normal. No S3. No S4. No any murmur. ABDOMEN: Soft, nontender. Bowel sounds are present. No organomegaly. EXTREMITIES: No clubbing, cyanosis, or edema. NEUROLOGIC: She is alert and oriented x4. There is no any motor or sensory deficits. LABORATORY DATA: Labs showed normal chemistry except for BUN which is 21. Four sets of troponins within normal limits. IMPRESSION: 1. Chest pain, resolved. We received a documentation from her hospital stay at the [facility] in December 2017 when she had cardiac catheterization done, which showed some vasospasms, which were relieved by nitroglycerin. The case was discussed with Dr. Krueger, who took over her care. This morning, he would like to do the stress test on her before she is discharged to a psych hospital. Her LVEF is estimated at about 35% to 40% and the EKG which came from December 2017 stay at the [facility] looks very similar to the one which was obtained during our hospitalization. 2. Human immunodeficiency virus, on treatment. 3. Seizure. 4. Suicidal ideations. 5. Anxiety. 6. Bipolar disorder. 7. Depression. 8. Hypertension. 9. Hepatitis C. 10. History of tetralogy of Fallot post surgical repair. 11. Substance abuse. 12. Nonischemic cardiomyopathy. PLAN: Plan is to do Cardiolite stress test with adenosine as per recommendation by Dr. Krueger when she is cleared medically as she can be transferred to psych hospital and the contact number for doc-to-doc is Dr. Juarez, phone #[phone]. Please contact this doctor for doc-to-doc discussion. Job ID: [id number]
[2019-08-22] MEDS: Acetaminophen/Codeine 30-300mg Tablet PO PRN (17:05)
[2019-08-23] MEDS: Isosorbide Mononitrate (ER) 30 MG TAB PO SCH (08:10)
[2019-08-23] MEDS: Aspirin 325 mg Enteric Coated Tablet PO SCH (08:10)
[2019-08-23] MEDS: Metoprolol Tartrate 25 MG TAB PO SCH ×2 (08:11→21:05)
[2019-08-23] MEDS: Emtricitabine/Tenofovir 200-300 MG TAB PO SCH (08:11)
[2019-08-23] MEDS: clonazePAM 1 MG TAB PO SCH ×2 (08:11→21:05)
[2019-08-23] MEDS: Raltegravir Potassium 400 MG TAB PO SCH ×2 (08:12→21:05)
[2019-08-23] MEDS: Acetaminophen/Codeine 30-300mg Tablet PO PRN ×2 (10:07→16:54)
--- NOTE | 2019-08-23 10:54 | NM ---
CARDIAC SPECT: CLINICAL HISTORY: 48-year-old female with chest pain, cardiomyopathy, and hypertension. TECHNIQUE: A myocardial perfusion scan was performed using the single isotope two day protocol with 33 mCi techn etium-99m sestamibi injected intravenously for both stress and rest images. Pharmacologic stress with Lexiscan was monitored and interpreted by Brenda Raphael NP. FINDINGS: Fairly homogeneous tracer distribution is seen in the myocardial segments on stress and rest images w ithout fixed or reversible defects. GATED SPECT LVEF: 39%. WALL MOTION EXAM: Global hypokinesis. IMPRESSION: No evidence of reversible ischemia. POS: [facility]PC
--- NOTE | 2019-08-23 12:19 | PDOC.HOSPP ---
- Subjective Encounter Date: 08/23/19 Encounter Time: 10:00 Subjective: Patient seen and examined. No new complaints. No overnight events - Objective Vital Signs & Weight: Vital Signs (12 hours) Temp Pulse Resp BP Pulse Ox 08/23/19 11:18 98.1 F 79 14 100/63 97 08/23/19 08:03 97.8 F 63 16 111/71 99 08/23/19 04:00 98.5 F 70 16 104/55 L 96 Weight Admit Weight 204 lb 12.8 oz Weight 205 lb I&O: 08/22/19 08/23/19 08/24/19 06:59 06:59 06:59 Intake Total 1969 1190 Balance 1969 1190 Result Diagrams: 08/16/19 16:23 08/22/19 05:46 EKG Reviewed by me: Yes Hospitalist ROS - Review of Systems Constitutional: denies: fever, chills, sweats, weakness, malaise, other Eyes: denies: pain, vision change, conjunctivae inflammation, eyelid inflammation, redness, other ENT: denies: ear pain, ear discharge, nose pain, nose discharge, nose congestion , mouth pain, mouth swelling, throat pain, throat swelling, other Respiratory: denies: cough, dry, shortness of breath, hemoptysis, SOB with excertion, pleuritic pain, sputum, wheezing, other Cardiovascular: denies: chest pain, palpitations, orthopnea, paroxysmal noc. dyspnea, edema, light headedness, other Gastrointestinal: denies: nausea, vomiting, abdominal pain, diarrhea, constipation, melena, hematochezia, other Genitourinary: denies: dysuria, frequency, incontinence, hematuria, retention, other Musculoskeletal: denies: neck pain, shoulder pain, arm pain, back pain, hand pain, leg pain, foot pain, other Skin: denies: rash, lesions, david, bruising, other - Medication Medications: Active Medications Generic Name Dose Route Start Last Admin Trade Name Freq PRN Reason Stop Dose Admin Acetaminophen 650 mg 08/17/19 20:25 08/22/19 10:36 Tylenol PO 650 mg Q6H PRN Administration Headache/Fever or Pain Acetaminophen/Codeine Phosphate 1 tab 08/22/19 13:39 08/23/19 10:07 Tylenol #3 PO 1 tab Q6H PRN Administration Pain 4-6 Alprazolam 0.25 mg 08/16/19 20:33 08/21/19 22:37 Xanax PO 0.25 mg QIDPRN PRN Administration Anxiety Aspirin 325 mg 08/17/19 09:00 08/23/19 08:10 Ecotrin PO 325 mg DAILY BRE Administration Clonazepam 1 mg 08/17/19 21:00 08/23/19 08:11 Klonopin PO 1 mg BID BRE Administration Emtricitabine/Tenofovir 1 tab 08/21/19 09:00 08/23/19 08:11 Truvada PO 1 tab DAILY BRE Administration Isosorbide Mononitrate 30 mg 08/23/19 09:00 08/23/19 08:10 Imdur Er PO 30 mg DAILY BRE Administration Loratadine 10 mg 08/20/19 08:37 08/20/19 09:10 Claritin PO 10 mg DAILYPRN PRN Administration Sinus Symptoms Lorazepam 1 mg 08/22/19 13:40 08/23/19 00:09 Ativan SLOW IVP 1 mg Q4H PRN Administration Seizures Metoprolol Tartrate 12.5 mg 08/16/19 21:00 08/23/19 08:11 Lopressor PO 12.5 mg BID BRE Administration Nitroglycerin 0.4 mg 08/16/19 20:31 08/21/19 00:12 Nitrostat PO 0.4 mg Q5MIN PRN Administration Chest Pain Raltegravir 400 mg 08/20/19 21:00 08/23/19 08:12 Isentress PO 400 mg BID BRE Administration Sodium Chloride 10 ml 08/17/19 21:00 08/23/19 08:12 Flush - Normal Saline IVF 10 ml Q12HR BRE Administration - Exam General Appearance: NAD, awake alert Eye: PERRL, anicteric sclera ENT: normocephalic atraumatic, no oropharyngeal lesions Neck: supple, symmetric, no JVD, no thyromegaly Heart: RRR, no murmur, no gallops, no rubs, normal peripheral pulses Respiratory: CTAB, no wheezes, no rales, no ronchi Gastrointestinal: soft, non-tender, non-distended, normal bowel sounds, no palpable masses Extremities: no cyanosis, no clubbing, no edema Skin: normal turgor, no lesions, no rashes Neurological: cranial nerve grossly intact, normal sensation to touch Musculoskeletal: normal tone, normal strength Psychiatric: normal affect, normal behavior Hosp A/P (1) Suicidal ideation Code(s): R45.851 - SUICIDAL IDEATIONS Status: Acute (2) Chest pain Code(s): R07.9 - CHEST PAIN, UNSPECIFIED Status: Acute (3) HIV (human immunodeficiency virus infection) Code(s): B20 - HUMAN IMMUNODEFICIENCY VIRUS [HIV] DISEASE Status: Chronic (4) Seizure Code(s): R56.9 - UNSPECIFIED CONVULSIONS Status: Chronic (5) Non-ischemic cardiomyopathy Code(s): I42.8 - OTHER CARDIOMYOPATHIES Status: Chronic (6) Thrombocytopenia Code(s): D69.6 - THROMBOCYTOPENIA, UNSPECIFIED Status: Chronic (7) Anxiety Code(s): F41.9 - ANXIETY DISORDER, UNSPECIFIED Status: Chronic (8) Bipolar 1 disorder Code(s): F31.9 - BIPOLAR DISORDER, UNSPECIFIED Status: Chronic (9) CHF (congestive heart failure) Code(s): I50.9 - HEART FAILURE, UNSPECIFIED Status: Chronic (10) Hepatitis C Code(s): B19.20 - UNSPECIFIED VIRAL HEPATITIS C WITHOUT HEPATIC COMA Status: Chronic (11) Neuropathy Code(s): G62.9 - POLYNEUROPATHY, UNSPECIFIED Status: Chronic (12) Past history of tetralogy of Fallot, post surgical repair Code(s): Z98.890 - OTHER SPECIFIED POSTPROCEDURAL STATES; Z87.74 - PERSONAL HISTORY OF CONGENITAL MALFORM OF HEART AND CIRC SYS Status: Chronic (13) Substance abuse Code(s): F19.10 - OTHER PSYCHOACTIVE SUBSTANCE ABUSE, UNCOMPLICATED Status: Chronic - Plan old records reviewed/req medication reviewed as above symptomatic treatment cardiac cause ruled out [facility] evaluation DC to psych facility when arranged
--- NOTE | 2019-08-23 13:10 | DIS ---
DATE OF ADMISSION: 08/18/2019 DATE OF DISCHARGE: 08/23/2019 PRIMARY CARE PHYSICIAN: [facility] Call admission. DISCHARGE DISPOSITION: Inpatient psych facility. PRIMARY DISCHARGE DIAGNOSES: 1. Suicidal ideation. 2. Chest pain ruled out acute coronary syndrome. SECONDARY DISCHARGE DIAGNOSES: Nonischemic cardiomyopathy, hepatitis C, rosacea, anxiety and depression, neuropathy, history of tetralogy of Fallot, human immunodeficiency virus positive, history of left below knee amputation, and history of polysubstance abuse. PRIMARY PROCEDURE/OPERATION: None. RADIOLOGICAL INVESTIGATION: Chest x-ray, no acute cardiopulmonary process. Echocardiography showed EF 40% to 45%. MRI brain negative. Stress test reported normal. EEG normal. SIGNIFICANT LABORATORY DATA: WBC 6.6, hemoglobin 11.9, and platelet 86. Sodium 136 and creatinine 0.92. Cardiac enzyme negative. Urinalysis unremarkable. Urine drug screen positive for benzodiazepines. DAGO negative. CD4 count 250. HIV positive. Syphilis, negative. DISCHARGE MEDICATIONS: 1. Aspirin 81 mg p.o. daily. 2. Klonopin 1 mg p.o. b.i.d. 3. Truvada one tablet p.o. daily. 4. Imdur ER 30 mg daily. 5. Metoprolol tartrate 12.5 mg b.i.d. 6. Isentress 400 mg b.i.d. CONTRAINDICATION: None. CODE STATUS: Full code. INPATIENT CONSULTANTS: Cardiology consulted. Neurology was consulted. Dr. Florentino was also consulted while in hospital. TEST RESULT PENDING ON DISCHARGE: None. ALLERGIES: PHENOBARBITAL. DISCHARGE PLAN: Posthospital, the patient will follow up with primary care physician. HOSPITAL COURSE: A 48-year-old female with above-mentioned medical problem was admitted by Dr. Richard. Please see his H and P for further details. The patient was admitted for chest pain. She had negative cardiac workup during this hospital course. The patient also had psychogenic seizure and that is why MRI brain was obtained, which was negative. EEG was unremarkable. Neurology was thinking psychogenic seizure. While in hospital, the patient was given Klonopin, but we finally deferred that medication to inpatient psychiatric facility. During this hospital course, Cardiology ordered stress test and that was came back negative. The patient is approved for inpatient psychiatric care. During this admission, echocardiography showed EF 40% to 45%. The patient is not given any JOE inhibitor because of currently low blood pressure, that medication can be restarted as an outpatient basis if needed. The patient will follow up with corporate consultant as directed. Paperwork for discharge done and discharge medication reconciliation done. Job ID: [id number]
[2019-08-23] MEDS: Acetaminophen 325 MG TAB PO PRN (14:36)
[2019-08-23 15:10] LABS: Cytoplasmic (C-ANCA) <1:20 titer (Neg:<1:20); Myeloperoxidase AutoAbs <9.0 U/mL (0.0-9.0); Perinuclear (P-ANCA) <1:20 titer (Neg:<1:20); Proteinase-3 AutoAbs 5.8 U/mL (0.0-3.5)
[2019-08-23] MEDS: ALPRAZolam 0.25 MG TAB PO PRN (23:12)
[2019-08-24] MEDS: Isosorbide Mononitrate (ER) 30 MG TAB PO SCH (09:56)
[2019-08-24] MEDS: Aspirin 325 mg Enteric Coated Tablet PO SCH (09:56)
[2019-08-24] MEDS: clonazePAM 1 MG TAB PO SCH (09:56)
[2019-08-24] MEDS: Raltegravir Potassium 400 MG TAB PO SCH (09:56)
[2019-08-24] MEDS: Emtricitabine/Tenofovir 200-300 MG TAB PO SCH (09:56)
[2019-08-24] MEDS: Metoprolol Tartrate 25 MG TAB PO SCH (09:56)
[2019-08-24] MEDS: Loratadine 10 MG TAB PO PRN (10:29)
[2019-08-24] MEDS: Acetaminophen/Codeine 30-300mg Tablet PO PRN (10:29)
[2019-08-24 12:18] VITALS: BP 101/53; TEMP 98.5
[2019-08-24 13:20] VITALS: BMI 34.1
== END 2019-08-24 14:20 | disposition short-term general hospital (02) | DRG 880 ==
LOC: ERS 15:39 → ERHOLD 19:20 → 2NO 08-17 00:20 → OBSVTOIN 08-18 09:47
PROVIDERS: ADMIT Internal Medicine; ATTEND Internal Medicine
DX: F44.5 Conversion disorder with seizures or convulsions (principal); R45.851 Suicidal ideations; B20 Human immunodeficiency virus [HIV] disease; I42.8 Other cardiomyopathies; R07.89 Other chest pain; F41.9 Anxiety disorder, unspecified; D69.6 Thrombocytopenia, unspecified; F31.9 Bipolar disorder, unspecified; B19.20 Unspecified viral hepatitis C without hepatic coma; Z79.899 Other long term (current) drug therapy; Z89.512 Acquired absence of left leg below knee; Z98.890 Other specified postprocedural states; F19.10 Other psychoactive substance abuse, uncomplicated
CPT/HCPCS: 36415; 70551; 71045; 78452; 80048; 80053; 80306; 80307; 81003; 81015; 83520; 83880; 84443; 84484; 84703; 85025; 85048; 85652; 86038; 86140; 86225; 86235; 86256; 86361; 86780; 87491; 87536; 87591; 90471; 90686; 93005; 93010; 93017; 93306; 94760; 95816; 95819; A9500; G0008; J2060; J2270